=== PATIENT | female | born 1935 | race Caucasian/White ===

== ENCOUNTER → 2019-06-05 | Outpatient (CLI) | payer MEDICARE, OTHER ==
[~2019-06-05] MED LIST: ACET500 PO; AMOCLA875 PO; ARTIFICIAL TEAR15 ML BOTHEYES; ATOR20 PO; Amlodipine Besy10 MG PO; BISA10S PR; BISM87SU PO; Bactrim Ds Tab1 EACH PO; Cough Syru100 MG/5 M PO; DIVA125 PO; DOCU100 PO; ENEMA BOTTLE1 EACH PR; GAVILAX17 G1 PO; LEVO750 PO; Lipitor20 MG PO; MIRALAX17 GM PO; OMEPRAZOLE20 MG PO; ONDA4ODT PO; QUET25 PO; SENN187 PO; Triple Antibio1 EACH TOP; [UNRECOGNIZED DRUG - OTHER] TOP
[2019-06-05 14:02] LABS: Source, Urine Clean Catch
[2019-06-05 14:07] LABS: Bilirubin, Urine Neg (Neg); Blood, Urine Neg (Neg); Glucose Qualitative, Urine Neg (Neg); Ketones, Urine 1+ (Neg); Leukocyte Esterase, Urine 1+ (Neg); Nitrite, Urine Neg (Neg); Protein, Urine Neg (Neg); Specific Gravity, Urine 1.015 (1.003-1.022); Urobilinogen, Urine NORM (Normal); pH, Urine 6.5 (5.0-8.0)
[2019-06-05 14:35] LABS: Appearance, Urine Clear (Clear); Color, Urine Yellow (P-Yellow)
[2019-06-05 14:36] LABS: Bacteria Few /hpf; Squamous Epithelial Cells Mod /hpf (Few)
== END ==
LOC: LAB SHORT 13:59 → LAB 13:59
PROVIDERS: Nurse Practitioner Family
DX: N39.0 Urinary tract infection, site not specified (principal)
CPT/HCPCS: 81001; 87077; 87086; 87186

== ENCOUNTER 2019-06-17 15:42 | Inpatient (IN) | payer MEDICARE, OTHER ==
[~2019-06-17] VITALS: Ht 162.6 cm; Wt 70.9 kg
[2019-06-17] MEDS ORDERED: Lipitor20 MG PO (16:16)
[2019-06-17] MEDS ORDERED: Amlodipine Besy10 MG PO (16:16)
[2019-06-17] MEDS ORDERED: DIVA125 PO (16:17)
[2019-06-17] MEDS ORDERED: OMEPRAZOLE20 MG PO (16:17)
[2019-06-17] MEDS ORDERED: QUET25 PO (16:18)
[2019-06-17] MEDS ORDERED: ACET500 PO (16:18)
[2019-06-17] MEDS ORDERED: [UNRECOGNIZED DRUG - OTHER] TOP (16:19)
[2019-06-17] MEDS ORDERED: Cough Syru100 MG/5 M PO (16:20)
[2019-06-17] MEDS ORDERED: BISM87SU PO (16:20)
[2019-06-17] MEDS ORDERED: ARTIFICIAL TEAR15 ML BOTHEYES (16:21)
[2019-06-17] MEDS ORDERED: GAVILAX17 G1 PO (16:22)
[2019-06-17] MEDS ORDERED: ENEMA BOTTLE1 EACH PR (16:23)
[2019-06-17] MEDS ORDERED: ONDA4ODT PO (16:24)
[2019-06-17] MEDS ORDERED: Triple Antibio1 EACH TOP (16:25)
[2019-06-17 16:46] LABS: Source, Urine Catheter
[2019-06-17 16:50] LABS: Bilirubin, Urine Neg (Neg); Blood, Urine 1+ (Neg); Glucose Qualitative, Urine Neg (Neg); Ketones, Urine 2+ (Neg); Leukocyte Esterase, Urine Neg (Neg); Nitrite, Urine Neg (Neg); Protein, Urine Neg (Neg); Specific Gravity, Urine 1.025 (1.003-1.022); Urobilinogen, Urine 1+ (Normal)
[2019-06-17 16:51] LABS: BASOPHILS ABSOLUTE AUTO 0.06 K/mm3 (0.00-0.23); BASOPHILS PERCENT AUTO 1 % (0-2); EOSINOPHILS ABSOLUTE AUTO 0.28 K/mm3 (0.00-0.68); EOSINOPHILS PERCENT AUTO 3 % (0-6); Hematocrit 46.8 % (33.0-51.0); Hemoglobin 14.9 g/dL (11.5-16.0); IMMATURE GRAN ABSOLUTE AUTO 0.02 K/mm3 (0.00-0.10); IMMATURE GRAN PERCENT AUTO 0 % (0-1); LYMPHOCYTES ABSOLUTE AUTO 1.86 K/mm3 (0.84-5.20); LYMPHOCYTES PERCENT AUTO 20 % (21-46); MONOCYTES ABSOLUTE AUTO 1.46 K/mm3 (0.16-1.47); MONOCYTES PERCENT AUTO 16 % (4-13); Mean Corpuscular HGB 28.5 pg (26.0-34.0); Mean Corpuscular HGB Conc 31.8 g/dL (31.5-36.5); Mean Corpuscular Volume 90 fL (80-100); Mean Platelet Volume 10.3 fL (9.1-12.4); NEUTROPHILS PERCENT AUTO 61 % (41-73); Platelet Count 111 K/mm3 (150-400); RDW Coefficient Variation 13.6 % (11.7-14.2); RDW Standard Deviation 45.2 fL (35.1-46.3); Red Blood Cell Count 5.23 M/mm3 (3.80-5.20); White Blood Cell Count 9.38 K/mm3 (4.00-11.30)
[2019-06-17 16:58] LABS: Appearance, Urine Clear (Clear); Color, Urine Yellow (P-Yellow)
[2019-06-17 16:59] LABS: Bacteria Few /hpf; Squamous Epithelial Cells Few /hpf (Few); White Blood Cells, Urine 0-2 /hpf (0-5)
[2019-06-17 17:10] LABS: Albumin/Globulin Ratio 0.7 (0.8-1.8); Bilirubin, Total 0.7 mg/dL (0.1-1.0); Bun/Creatinine Ratio 26.9 (12.0-20.0); Calcium, Blood 10.4 mg/dL (8.5-10.1); Creatinine, Blood 0.97 mg/dL (0.40-1.00); Globulin, Blood 4.4 g/dL (2.2-4.0); Potassium, Blood 4.4 mmol/L (3.5-5.5); Total Protein, Blood 7.4 g/dL (6.4-8.2)
--- NOTE | 2019-06-17 22:45 | NUR ---
ADMIT RECEIVED FROM ER VIA GURNEY. AWAKE AND ALERT. ORIENTED TO SELF AND FOLLOWING DIRECTIONS ONLY. ANXIOUS AND DEFENSIVE, LASHED OUT AT STAFF WHEN REPOSITIONING. SLOW VERBAL RESPONSE NOTED. MOVES ALL EXTREMITIES. REPOSITIONS SELF IN BED. DENIES C/O PAIN. CNVI 0/5 AT THIS TIME. TELEMETRY SHOWS NSR WITH FIRST DEGREE AV BLOCK, RATE 70s. BP STABLE. RESPIRATIONS EVEN AND UNLABORED. RA SATS STABLE. SEE ADMIT ASSESSMENT FOR FULL ASSESSMENT.
[2019-06-18 04:10] LABS: BASOPHILS ABSOLUTE AUTO 0.05 K/mm3 (0.00-0.23); BASOPHILS PERCENT AUTO 1 % (0-2); EOSINOPHILS ABSOLUTE AUTO 0.34 K/mm3 (0.00-0.68); EOSINOPHILS PERCENT AUTO 4 % (0-6); Hematocrit 39.7 % (33.0-51.0); Hemoglobin 12.7 g/dL (11.5-16.0); IMMATURE GRAN ABSOLUTE AUTO 0.02 K/mm3 (0.00-0.10); IMMATURE GRAN PERCENT AUTO 0 % (0-1); LYMPHOCYTES ABSOLUTE AUTO 1.56 K/mm3 (0.84-5.20); LYMPHOCYTES PERCENT AUTO 20 % (21-46); MONOCYTES ABSOLUTE AUTO 1.04 K/mm3 (0.16-1.47); MONOCYTES PERCENT AUTO 13 % (4-13); Mean Corpuscular HGB 28.7 pg (26.0-34.0); Mean Corpuscular Volume 90 fL (80-100); Mean Platelet Volume 10.4 fL (9.1-12.4); NEUTROPHILS ABSOLUTE AUTO 4.78 K/mm3 (1.96-9.15); NEUTROPHILS PERCENT AUTO 61 % (41-73); Platelet Count 117 K/mm3 (150-400); RDW Coefficient Variation 13.5 % (11.7-14.2); RDW Standard Deviation 44.6 fL (35.1-46.3); Red Blood Cell Count 4.43 M/mm3 (3.80-5.20); White Blood Cell Count 7.79 K/mm3 (4.00-11.30)
[2019-06-18 04:33] LABS: Alanine Aminotransfer (ALT/SGP 110 U/L (12-78); Albumin, Blood 2.6 g/dL (3.4-5.0); Albumin/Globulin Ratio 0.7 (0.8-1.8); Alk Phos 217 U/L (50-136); Anion Gap 8 mmol/L (6-16); Aspartate Aminotrans (AST/SGOT 52 U/L (12-37); Bilirubin, Total 0.7 mg/dL (0.1-1.0); Blood Urea Nitrogen 22 mg/dL (8-24); Bun/Creatinine Ratio 28.7 (12.0-20.0); CO2, Blood 23 mmol/L (21-32); Calcium, Blood 9.2 mg/dL (8.5-10.1); Chloride, Blood 111 mmol/L (98-108); Creatinine, Blood 0.77 mg/dL (0.40-1.00); Globulin, Blood 3.7 g/dL (2.2-4.0); Glomerular Filtration Rate >60 (60-); Glucose, Blood 94 mg/dL (70-99); Potassium, Blood 4.1 mmol/L (3.5-5.5); Sodium, Blood 142 mmol/L (136-145); Total Protein, Blood 6.3 g/dL (6.4-8.2)
--- NOTE | 2019-06-18 05:30 | NUR ---
OUT OF BED PT FOUND STANDING AT BEDSIDE, ATTENDS OFF AND PEEING ON FLOOR. BACK TO BED WITH ASSIST. ENSURED THAT BED ALARM IS ON AND IS WORKING CORRECTLY.
--- NOTE | 2019-06-18 06:32 | NUR ---
SHIFT SUMMARY NO ACUTE CHANGES. CONTINUES TO BE ORIENTED TO SELF ONLY. FOLLOWS SIMPLE COMMANDS. SLOW VERBAL RESPONSE NOTED. ALSO NOTED TO HAVE SOME DIFFICULTY IN GETTING THOUGHTS OUT. IMPULSIVE AT TIMES- BED ALARM IS ON. MOVES ALL EXTREMITIES. VSS. REMAINS ON RA. RESPIRATIONS EVEN AND UNLABORED. NS INFUSING @ 150CC/HR PER ORDER. INCONTINENT OF URINE- ATTENDS IN PLACE. ABDOMINAL ULTRASOUND SCHEDULED FOR THIS AM. PT REMAINS NPO. WILL REPORT TO DAY SHIFT RN WHEN AVAILABLE.
--- NOTE | 2019-06-18 07:32 | NUR ---
NURSING PCU DAYSHIFT: Assumed care of pt at approx 0700. Alert, oriented to self only, follows some simple commands. Appears fearful at times and becomes angry w/some touch, speech is slow and mumbled. Skin is fragile w/scattered bruising on UE's, no breakdown noted. General weakness though able to assist w/repositioning. Tele in place, NSR w/first degree block, no c/o CP/pressure, SBP 90's, no noted edema. L/S cta t/o, O2 sat upper 90's on RA, no dyspnea or cough noted. Abd SNT, BT+, incontinent of urine, attends in place. PIV x1, NS infusing at 150cc/hr x1 liter. No s/s of acute distress at this time. Awaiting rounding from PMD, will discuss diet orders. No current needs identified. Bed alarm set for safety purposes. Cont to monitor for any changes.
--- NOTE | 2019-06-18 15:25 | NUR ---
NURSING PCU TRANSFER SUMMARY: Pt became more alert mid shift and interactive w/staff. Sat up for lunch and tolerated well. Unable to express needs though is able to answer basic yes/no needs based questions such as hunger and toileting. Bed alarm remains in use for safety purposes. Seen by PMD, transfer to medical floor d/o received. Rpt provided to accepting RN, PCT at bedside for w/c transport at this time. No s/s of acute distress, cont to monitor until transport is completed.
--- NOTE | 2019-06-18 16:45 | NUR ---
PT ARRIVED TO ROOM 349 FROM PCU. PT AWAKE AND ALERT TO SELF ONLY. PT DENIES ANY COMPLAINTS. LS CLEAR, ON RA. HRR. DNR WRISTBAND TO RIGHT WRIST. NS AT 75ML/HR STARTED TO 20G IV TO LAC. PT ORIENTED TO ROOM AND CALL SYSTEM, CALL LIGHT IN REACH, BED ALARM ON.
--- NOTE | 2019-06-18 21:40 | NUR ---
positive blood culture, ua currently unremarkable after completing outpt antibiotics. nkda . DR notified [facility] rx zosyn 3.75 IV Q 6 HRs for positive blood culture.
--- NOTE | 2019-06-19 05:23 | NUR ---
PT is irritable and resists cares and vital signs. Verbally abusive threatens to hit staff but does not attempt to strike us. She was incontinent of urine and I explained what we needed to do and she verbally resists. She then hollered she needed to use bathroom right after changed. Up to c voided small amt. She had taken no oral intake but accepted coffee and ensure this AM. Continues on normal saline and zosyn. One positive blood culture after tx for uti. Has lab work scheduled for this am. as she is drinking ensure I asked if the lab can approach her last so she can drink. Poor memory, hx dementia. Unsteady gait.
[2019-06-19 05:50] LABS: Mean Platelet Volume 9.8 fL (9.1-12.4); Platelet Count 135 K/mm3 (150-400)
[2019-06-19 06:08] LABS: Alanine Aminotransfer (ALT/SGP 88 U/L (12-78); Albumin, Blood 2.5 g/dL (3.4-5.0); Albumin/Globulin Ratio 0.7 (0.8-1.8); Alk Phos 206 U/L (50-136); Anion Gap 8 mmol/L (6-16); Aspartate Aminotrans (AST/SGOT 47 U/L (12-37); Bilirubin, Total 0.5 mg/dL (0.1-1.0); Blood Urea Nitrogen 22 mg/dL (8-24); Bun/Creatinine Ratio 29.5 (12.0-20.0); CO2, Blood 22 mmol/L (21-32); Calcium, Blood 9.5 mg/dL (8.5-10.1); Chloride, Blood 115 mmol/L (98-108); Creatinine, Blood 0.75 mg/dL (0.40-1.00); Globulin, Blood 3.6 g/dL (2.2-4.0); Glomerular Filtration Rate >60 (60-); Glucose, Blood 100 mg/dL (70-99); Potassium, Blood 4.3 mmol/L (3.5-5.5); Sodium, Blood 145 mmol/L (136-145); Total Protein, Blood 6.1 g/dL (6.4-8.2)
--- NOTE | 2019-06-19 15:18 | NUR ---
LIN BECKER FROM [facility] GIVEN VERBAL UPDATE ON PT.
--- NOTE | 2019-06-19 17:09 | NUR ---
SHIFT SUMMARY- PT A/O TO PERSON AND HOSPITAL. PT HAS BEEN PLEASANT T/O MOST OF THE DAY, DIFFICULT TO FOLLOW DIRECTIONS AT TIMES. LS CLEAR, ON RA. INCONT/CONT OF URINE. PT DENIES ANY COMPLAINTS. PT STARTED BACK ON BEDTIME SEROQUEL WHICH WAS CONFIRMED WITH NURSE AT [facility] THAT SHE TAKES IT. 1 ASSIST UP TO BSC AND UP TO CHAIR FOR MEALS T/O THE DAY. NO OTHER ACUTE CHANGES THIS SHIFT.
--- NOTE | 2019-06-20 04:26 | NUR ---
SHIFT SUMMARY NO ACUTE CHANGES TO REPORT OVERNIGHT. PT RESPONDED WELL TO HS SEROQUEL AND HAS SLEPT MOST OF THE NIGHT WITH NO AGITATION. SHE HAS AMBULATED TO BEDSIDE COMMODE A FEW TIMES THIS SHIFT TO VOID. URINE IS FOUL SMELLING, AND PT DOES HAVE SOME FREQUENCY. PT FORGETFUL AND YELLS OUT BUT HAS BEEN EASY TO REDIRECT. IV ABX INFUSED PER ORDERS. VITALS STABLE. POSSIBLE DC TODAY DEPENDENT ON BLOOD CX RESULTS. WILL CONTINUE TO MONITOR AND REPORT TO ONCOMING RN.
--- NOTE | 2019-06-20 12:26 | NUR ---
F/U APPT.: SPOKE WITH [facility] RECEPTIONIST TO SCHEDULE F/U APPT. WITH [facility]. ACCORDING TO THE SOCIAL SCIENCE INSTRUCTOR, THE PT HAS A NEW PT APPT. SET FOR . THIS RN ASKED TO MOVE THE APPT. TO A SOONER DATE (WITHIN 2 WEEKS) BUT THE OFFICE STATED THAT [facility] IS VERY PARTICULAR ABOUT THEIR APPTS. AND WILL NEED TO RESCHEDULE IT THEMSELVES. NOTIFIED BEDSIDE LIN PARKS WHO STATED SHE WILL INFORM [facility] LIN BECKER.
[2019-06-20] MEDS ORDERED: AMOCLA875 PO (12:49)
--- NOTE | 2019-06-20 17:14 | NUR ---
DISCHARGE NOTE PT DC'D HER OWN IV. HANDOFF CALLED TO NURSE EUGENIO AT [facility] PERSONAL POSSSESSIONS GATHERED. PERSONNEL RESEARCH SCIENTIST CAME TO TRANSPORT PT TO [facility]). DISCHARGE PACKET FAXED TO [facility]) AND A HARDCOPY GIVEN TO PERSONNEL RESEARCH SCIENTIST.
== END 2019-06-20 17:11 | disposition home health service (06) | DRG 640 ==
LOC: ER 15:42 → PCU 15:43 → MEDS 06-18 15:09
PROVIDERS: Emergency Medicine; Internal Medicine; Nurse Practitioner Acute Care; ADMIT Hospitalist
DX: E86.0 Dehydration (principal); G93.41 Metabolic encephalopathy; N39.0 Urinary tract infection, site not specified; K21.9 Gastro-esophageal reflux disease without esophagitis; F39 Unspecified mood [affective] disorder; Z90.49 Acquired absence of other specified parts of digestive tract; D69.6 Thrombocytopenia, unspecified; I10 Essential (primary) hypertension
CPT/HCPCS: 36415; 71046; 76705; 80053; 81001; 82947; 84145; 84484; 85025; 85049; 86140; 87040; 93005; 93010; 96360; 96361; 97161; 97165; 97530; 99285-25; G0378; J1650; J2543; J7030

== ENCOUNTER → 2019-07-04 | Outpatient (CLI) | payer MEDICARE, OTHER ==
[2019-07-07 11:42] LABS: Source, Urine Clean Catch
[2019-07-07 12:01] LABS: Bilirubin, Urine Neg (Neg); Blood, Urine 2+ (Neg); Glucose Qualitative, Urine Neg (Neg); Ketones, Urine 1+ (Neg); Leukocyte Esterase, Urine 3+ (Neg); Nitrite, Urine Pos (Neg); Protein, Urine 2+ (Neg); Urobilinogen, Urine NORM (Normal)
[2019-07-07 12:20] LABS: Appearance, Urine Hazy (Clear); Color, Urine Yellow (P-Yellow)
[2019-07-07 12:21] LABS: Bacteria Many /hpf; Calcium Oxalate Crystals Many /hpf; Squamous Epithelial Cells Few /hpf (Few)
== END ==
LOC: LAB SHORT 18:00 → LAB 18:00
PROVIDERS: Registered Nurse
DX: N39.0 Urinary tract infection, site not specified (principal)
CPT/HCPCS: 81001; 87077; 87086; 87186

== ENCOUNTER 2019-07-11 13:03 | Inpatient (IN) | payer MEDICARE, OTHER ==
[~2019-07-11] VITALS: Ht 157.5 cm; Wt 69.8 kg
[~2019-07-11 13:03] MED LIST changes: -ATOR20 PO; -BISA10S PR; -Bactrim Ds Tab1 EACH PO; -DOCU100 PO; -LEVO750 PO; -MIRALAX17 GM PO; -SENN187 PO
[2019-07-11 13:41] LABS: Source, Urine Clean Catch
[2019-07-11 13:55] LABS: BASOPHILS ABSOLUTE AUTO 0.04 K/mm3 (0.00-0.23); BASOPHILS PERCENT AUTO 0 % (0-2); EOSINOPHILS ABSOLUTE AUTO 0.05 K/mm3 (0.00-0.68); EOSINOPHILS PERCENT AUTO 1 % (0-6); Hematocrit 41.2 % (33.0-51.0); Hemoglobin 13.1 g/dL (11.5-16.0); IMMATURE GRAN ABSOLUTE AUTO 0.02 K/mm3 (0.00-0.10); IMMATURE GRAN PERCENT AUTO 0 % (0-1); LYMPHOCYTES ABSOLUTE AUTO 0.27 K/mm3 (0.84-5.20); LYMPHOCYTES PERCENT AUTO 3 % (21-46); MONOCYTES PERCENT AUTO 8 % (4-13); Mean Corpuscular HGB Conc 31.8 g/dL (31.5-36.5); Mean Corpuscular Volume 88 fL (80-100); Mean Platelet Volume 10.3 fL (9.1-12.4); NEUTROPHILS ABSOLUTE AUTO 7.95 K/mm3 (1.96-9.15); NEUTROPHILS PERCENT AUTO 88 % (41-73); Platelet Count 130 K/mm3 (150-400); RDW Coefficient Variation 13.9 % (11.7-14.2); RDW Standard Deviation 44.3 fL (35.1-46.3); Red Blood Cell Count 4.68 M/mm3 (3.80-5.20); White Blood Cell Count 9.03 K/mm3 (4.00-11.30)
[2019-07-11 14:03] LABS: Albumin, Blood 3.1 g/dL (3.4-5.0); Albumin/Globulin Ratio 0.9 (0.8-1.8); Bilirubin, Total 1.4 mg/dL (0.1-1.0); Bun/Creatinine Ratio 17.5 (12.0-20.0); Calcium, Blood 9.5 mg/dL (8.5-10.1); Creatinine, Blood 0.97 mg/dL (0.40-1.00); Globulin, Blood 3.5 g/dL (2.2-4.0); Total Protein, Blood 6.6 g/dL (6.4-8.2)
[2019-07-11 14:17] LABS: Bilirubin, Urine Neg (Neg); Blood, Urine Neg (Neg); Glucose Qualitative, Urine Neg (Neg); Ketones, Urine Neg (Neg); Leukocyte Esterase, Urine Neg (Neg); Nitrite, Urine Neg (Neg); Protein, Urine Neg (Neg); Specific Gravity, Urine 1.015 (1.003-1.022); Urobilinogen, Urine 1+ (Normal)
[2019-07-11 14:23] LABS: Appearance, Urine Clear (Clear); Color, Urine Yellow (P-Yellow)
[2019-07-11] MEDS ORDERED: ATOR20 PO (14:28)
[2019-07-11] MEDS ORDERED: OMEPRAZOLE20 MG PO (14:28)
[2019-07-11] MEDS ORDERED: Bactrim Ds Tab1 EACH PO (14:28)
[2019-07-11] MEDS ORDERED: ONDA4ODT PO (14:29)
[2019-07-11] MEDS ORDERED: ACET500 PO (17:09)
[2019-07-11] MEDS ORDERED: BISM87SU PO (17:09)
[2019-07-11] MEDS ORDERED: MIRALAX17 GM PO (17:10)
[2019-07-11 17:27] LABS: International Normalized Ratio 1.07; Prothrombin Time Results 11.3 Sec (9.7-11.5)
--- NOTE | 2019-07-11 18:33 | NUR ---
Pt arrival to PCU 1 at approx 1750 via [facility] with ED RN at bedside. Upon arrival, pt with flat affect, shaking uncontrollably, warm to the touch. This RN attempting to converse with pt, asking orientation questions but pt reponds only with "no." Pt transferred from [facility] to PCU bed via slider sheet, pt yelling with transfer. this RN asked pt if she is in pain, pt did not answer, only looks at this RN. Pt with limited passive ROM ability. Unable to assess orientation d/t pt not answering questions. When this RN asked pt for name and for vitals verification, pt responds "get the hell out". Pt with VSS as follows: 126/72 MAP of 90, 98% o2 on 2LNC, breathing 21 bpm, mildly labored, shallow, wheeze audible; pulse 78 per monitor; temp 99 via temporal. as assessment continues, pt responding to questions here and there. When asked if stomach is tender to palp; pt responds "yes". When asked if this Rn can place a new IV in left arm, pt responds "do not poke me. do not poke me." Istrate called to clarify fluid orders, order clarified and NS to be given at 75mls/hr. Will continue to monitor.
--- NOTE | 2019-07-11 21:42 | NUR ---
PATIENT ADMISSION HX UNABLE TO BE COMPLETED DUE TO AMS, MEDICAL HX PROVIDED BY [facility] USED FOR MEDICATION RECONCILIATION AND ALLERGIES.
[2019-07-12 04:05] LABS: BASOPHILS ABSOLUTE AUTO 0.05 K/mm3 (0.00-0.23); BASOPHILS PERCENT AUTO 1 % (0-2); EOSINOPHILS ABSOLUTE AUTO 0.12 K/mm3 (0.00-0.68); EOSINOPHILS PERCENT AUTO 2 % (0-6); Hematocrit 33.7 % (33.0-51.0); Hemoglobin 10.7 g/dL (11.5-16.0); IMMATURE GRAN ABSOLUTE AUTO 0.02 K/mm3 (0.00-0.10); IMMATURE GRAN PERCENT AUTO 0 % (0-1); LYMPHOCYTES PERCENT AUTO 8 % (21-46); MONOCYTES ABSOLUTE AUTO 0.76 K/mm3 (0.16-1.47); MONOCYTES PERCENT AUTO 10 % (4-13); Mean Corpuscular HGB 28.4 pg (26.0-34.0); Mean Corpuscular HGB Conc 31.8 g/dL (31.5-36.5); Mean Corpuscular Volume 89 fL (80-100); Mean Platelet Volume 10.6 fL (9.1-12.4); NEUTROPHILS ABSOLUTE AUTO 6.04 K/mm3 (1.96-9.15); NEUTROPHILS PERCENT AUTO 80 % (41-73); Platelet Count 109 K/mm3 (150-400); RDW Coefficient Variation 14.2 % (11.7-14.2); RDW Standard Deviation 45.8 fL (35.1-46.3); Red Blood Cell Count 3.77 M/mm3 (3.80-5.20); White Blood Cell Count 7.59 K/mm3 (4.00-11.30)
[2019-07-12 04:21] LABS: Albumin, Blood 2.3 g/dL (3.4-5.0); Albumin/Globulin Ratio 0.7 (0.8-1.8); Bilirubin, Total 1.6 mg/dL (0.1-1.0); Bun/Creatinine Ratio 16.5 (12.0-20.0); Calcium, Blood 8.9 mg/dL (8.5-10.1); Creatinine, Blood 1.03 mg/dL (0.40-1.00); Globulin, Blood 3.1 g/dL (2.2-4.0); Magnesium, Blood 1.6 mg/dL (1.6-2.4); Phosphorus, Blood 2.8 mg/dL (2.5-4.9); Potassium, Blood 4.1 mmol/L (3.5-5.5); Total Protein, Blood 5.4 g/dL (6.4-8.2)
--- NOTE | 2019-07-12 04:34 | NUR ---
SHIFT SUMMARY: PATIENT HAS VERY BRIEF PERIODS OF MENTAL ALLERTNESS BUT IS AGGITATED AND ANGRY WITH STAFF AT THESE TIMES. VSS, BED LOW AND LOCKED WITH EXIT ALARM ON, CALL LIGHT WITHIN REACH. SKIN C/D/I, ATTENDS IN PLACE, PATIENT TURNED Q2.
--- NOTE | 2019-07-12 07:16 | NUR ---
ASSUMED CARE REPORT FROM LIN REYES. PATIENT AWAKE. WHEN REMINDED SHE WAS IN THE HOSPITAL, SHE SAID "I KNOW"
--- NOTE | 2019-07-12 09:41 | NUR ---
MD VISIT DR. BUENO IN. PLANS FOR DISCHARGE. PATIENT SAYS "I KNOW" WHEN REORIENTED, BUT SAYS SHE LIVES IN [place] AND IS UNCOOPERTIVE WITH CARE.
[2019-07-12] MEDS ORDERED: LEVO750 PO (10:05)
--- NOTE | 2019-07-12 11:59 | NUR ---
ORDER FOR DISCHARGE, BUT [facility] IS NOT ACCEPTING PATIENT ON THE WEEKEND.
--- NOTE | 2019-07-12 12:10 | NUR ---
DAUGHTER TATE ([phone]) UPDATED. SHE DOES NOT LIVE HERE LOCALLY
--- NOTE | 2019-07-12 12:38 | NUR ---
PATIENT WILL TRANSFER TO ROOM 348 TO AWAIT DISCHARGE.
--- NOTE | 2019-07-12 14:27 | NUR ---
REPORT GIVEN TO LIN NEWMAN. PATIENT MOVED IN BED BY SHOT BLASTER X2 TO 348
--- NOTE | 2019-07-12 18:45 | NUR ---
TRANSFER/SHIFT SUMMARY PATIENT MOVED TO SCU. PATIENT CONFUSED AND WARY OF STAFF. PATIENT STATED SHE HAD TO USE THE BATHROOM AND COMMODE WAS SET UP AND HEAD OF BED SET UP, PATIENT WAS NOT ABLE TO SIT HERSELF UP/SWING LEGS OVER. PATIENT ALLOWED STAFF TO CHANGE HER BRIEF IN BED. PATIENT DOES NOT PICK AT POWERGLIDE. PATIENT STATED THE FOOD TASTED BAD.
--- NOTE | 2019-07-13 04:29 | NUR ---
SHIFT SUMMARY: PT IS ALERT AND CONFUSED AT BASELINE. PT IS NON-COOPERATIVE WITH CARE AT TIMES. PT TOO WEAK TO GET OUT OF BED, BEDREST ORDERED. PT INCONTINENT ON SEVERAL OCCASIONS, CHANGED AND CLEANED NEEDED. PT SLEPT INTERMITTENTLY THROUGHOUT THE NIGHT. PT SHOWS NO S/S FOR PAIN, NAUSEA, VOMITING, AND SOB. NO ACUTE CHANGES OR COMPLICATIONS. WILL REPORT TO DAY NURSE.
--- NOTE | 2019-07-13 17:45 | NUR ---
SHIFT SUMMMARY PATIENT DENIES PAIN, SOB, NAUSEA. STATES "I'M FINE" TO ALL OTHER QUESTIONS ABOUT HER. WAS ABLE TO CHOOSE BETWEEN FOOD OPTIONS TO FILL OUT MENU. HAS NOT EATEN MANY MEALS HERE BUT ATE ALL OF LUNCH. PATIENT IS CONTINENT MOST OF THE TIME AND HAS PIVOTED TO THE COMMODE TODAY SEVERAL TIMES. OTHERWISE NO CHANGE TO PATIENT CONDITION, SHE REFUSED AM MEDS. WILL CONTINUE TO MONITOR.
--- NOTE | 2019-07-14 02:07 | NUR ---
*PT PULLED OUT POWERGLIDE @ 0030 HRS*
--- NOTE | 2019-07-14 04:22 | NUR ---
SHIFT SUMMARY PT WAS PLEASENT AND COOPERATIVE AT BEGINNING OF SHIFT. PT WAS ABLE TO SLEEP FOR SOME TIME. PT WOKE UP AGITATED AND UNCOOPERATIVE. PT HAS BEEN USING BSC WITH ASSISTANCE. PT CURRENTLY AWAKE AND LAYING IN BED. CALL LIGHT IN REACH AND BED ALARM ON.
[2019-07-14] MEDS ORDERED: SENN187 PO (14:43)
[2019-07-14] MEDS ORDERED: BISA10S PR (14:44)
[2019-07-14] MEDS ORDERED: DOCU100 PO (14:45)
--- NOTE | 2019-07-14 15:57 | NUR ---
PT. HILARIO AND TRANSFERRED TO [facility] VIA [facility]. BELONGINGS SENT WITH PT. AND ORDERS AND MEDS FAXED TO [facility] BY MANAGER MASSAGE DEPARTMENT. REPORT GIVEN THIS MORNING TO [facility] WHEN THEY CALLED.
== END 2019-07-14 15:50 | DRG 871 ==
LOC: ER 13:03 → PCU 17:13 → MEDS 17:43 → PCU 17:50 → MEDS 07-12 14:34 → ENPENDDIS 07-14 12:40 → MEDS 07-14 15:50
PROVIDERS: Emergency Medicine; ADMIT Family Medicine
DX: A41.9 Sepsis, unspecified organism (principal); J18.1 Lobar pneumonia, unspecified organism; G92 Toxic encephalopathy; Z66 Do not resuscitate; N39.0 Urinary tract infection, site not specified; I10 Essential (primary) hypertension; K21.9 Gastro-esophageal reflux disease without esophagitis; F25.9 Schizoaffective disorder, unspecified; E78.5 Hyperlipidemia, unspecified; F03.90 Unspecified dementia, unspecified severity, without behavioral disturbance, psychotic disturbance, mood disturbance, and anxiety; D69.6 Thrombocytopenia, unspecified; E86.0 Dehydration; N28.9 Disorder of kidney and ureter, unspecified
CPT/HCPCS: 36415; 71045; 74176; 80053; 81003; 83605; 83690; 83735; 84100; 85025; 85610; 85730; 87040; 93005; 93010; 96360; 96361; 97161; 97530; 99285-25; C1751; C9113; J0692; J1650; J1956; J3370; J7030; J7120; P9612

== ENCOUNTER → 2019-07-31 | Outpatient (CLI) | payer MEDICARE, OTHER ==
[~2019-07-31] MED LIST changes: +ATOR20 PO; +BISA10S PR; +Bactrim Ds Tab1 EACH PO; +DOCU100 PO; +LEVO750 PO; +MIRALAX17 GM PO; +SENN187 PO
[2019-07-31 11:03] LABS: Source, Urine Clean Catch
[2019-07-31 12:28] LABS: Bilirubin, Urine Neg (Neg); Blood, Urine Neg (Neg); Glucose Qualitative, Urine Neg (Neg); Ketones, Urine Neg (Neg); Leukocyte Esterase, Urine Neg (Neg); Nitrite, Urine Neg (Neg); Protein, Urine Neg (Neg); Specific Gravity, Urine 1.025 (1.003-1.022); Urobilinogen, Urine NORM (Normal)
[2019-07-31 12:36] LABS: Appearance, Urine Clear (Clear); Color, Urine Yellow (P-Yellow)
== END | disposition home or self-care (01) ==
LOC: LAB SHORT 01:06 → LAB 01:06
PROVIDERS: Registered Nurse
DX: N39.0 Urinary tract infection, site not specified (principal)
CPT/HCPCS: 81003

== ENCOUNTER → 2019-09-11 | Outpatient (CLI) | payer MEDICARE, OTHER ==
[2019-09-11 16:37] LABS: Bilirubin, Urine Neg (Neg); Blood, Urine Neg (Neg); Glucose Qualitative, Urine Neg (Neg); Ketones, Urine Neg (Neg); Leukocyte Esterase, Urine Neg (Neg); Nitrite, Urine Neg (Neg); Protein, Urine Neg (Neg); Urobilinogen, Urine NORM (Normal)
[2019-09-11 16:57] LABS: Appearance, Urine Clear (Clear); Color, Urine Yellow (P-Yellow)
== END | disposition home or self-care (01) ==
LOC: LAB 13:59 → LAB SHORT 13:59
PROVIDERS: Registered Nurse
DX: N39.0 Urinary tract infection, site not specified (principal)
CPT/HCPCS: 81003

== ENCOUNTER → 2019-11-28 | Outpatient (CLI) | payer MEDICARE, OTHER ==
[2019-11-28 18:25] LABS: Source, Urine Clean Catch
[2019-11-28 19:42] LABS: Appearance, Urine Clear (Clear); Bilirubin, Urine Neg (Neg); Blood, Urine Neg (Neg); Color, Urine Yellow (P-Yellow); Glucose Qualitative, Urine Neg (Neg); Ketones, Urine Neg (Neg); Leukocyte Esterase, Urine Neg (Neg); Nitrite, Urine Neg (Neg); Protein, Urine Neg (Neg); Urobilinogen, Urine NORM (Normal)
== END | disposition home or self-care (01) ==
LOC: LAB 18:22 → LAB SHORT 18:22
PROVIDERS: Registered Nurse
DX: N39.0 Urinary tract infection, site not specified (principal)
CPT/HCPCS: 81003

== ENCOUNTER → 2020-04-27 | Outpatient (CLI) | payer MEDICARE, OTHER ==
[~2020-04-27] MED LIST changes: +AMLO10 PO; +Aspir 8181 MG PO; +CEFD300 PO; +FURO20 PO; +Haloperidol2 MG/1 ML PO; +Milk Of Ma400 MG/5 M PO; +Norco 5-325 Ta1 EACH PO; +OMEP20ER PO; +OXYB5 PO; +POTA10T PO
[2020-04-27 18:49] LABS: Source, Urine Clean Catch
[2020-04-27 19:47] LABS: Bilirubin, Urine Neg (Neg); Blood, Urine 1+ (Neg); Glucose Qualitative, Urine Neg (Neg); Ketones, Urine Neg (Neg); Leukocyte Esterase, Urine Neg (Neg); Nitrite, Urine Neg (Neg); Protein, Urine Neg (Neg); Specific Gravity, Urine 1.015 (1.003-1.022); Urobilinogen, Urine NORM (Normal)
[2020-04-27 19:57] LABS: Appearance, Urine Clear (Clear); Bacteria Many /hpf; Color, Urine Yellow (P-Yellow); Red Blood Cells, Urine 0-2 /hpf (0-2); Squamous Epithelial Cells Few /hpf (Few); White Blood Cells, Urine 0-2 /hpf (0-5)
== END | disposition home or self-care (01) ==
LOC: LAB 18:47 → LAB SHORT 18:47
PROVIDERS: Registered Nurse
DX: N39.0 Urinary tract infection, site not specified (principal)
CPT/HCPCS: 81001; 87077; 87086; 87186

== ENCOUNTER 2020-05-26 16:54 | Emergency (ER) | payer MEDICARE, OTHER ==
[~2020-05-26] VITALS: Ht 162.6 cm; Wt 72.6 kg
[~2020-05-26 16:54] MED LIST changes: -AMLO10 PO; -Aspir 8181 MG PO; -CEFD300 PO; -FURO20 PO; -Haloperidol2 MG/1 ML PO; -Milk Of Ma400 MG/5 M PO; -Norco 5-325 Ta1 EACH PO; -OMEP20ER PO; -OXYB5 PO; -POTA10T PO
[2020-05-26] MEDS ORDERED: Aspir 8181 MG PO (17:15)
[2020-05-26] MEDS ORDERED: AMLO10 PO (17:15)
[2020-05-26] MEDS ORDERED: FURO20 PO (17:16)
[2020-05-26] MEDS ORDERED: CEFD300 PO (17:16)
[2020-05-26] MEDS ORDERED: Norco 5-325 Ta1 EACH PO (17:18)
[2020-05-26] MEDS ORDERED: Haloperidol2 MG/1 ML PO (17:18)
[2020-05-26] MEDS ORDERED: OMEP20ER PO (17:19)
[2020-05-26] MEDS ORDERED: POTA10T PO (17:20)
[2020-05-26] MEDS ORDERED: OXYB5 PO (17:20)
[2020-05-26] MEDS ORDERED: Milk Of Ma400 MG/5 M PO (17:23)
[2020-05-26 17:27] LABS: BASOPHILS ABSOLUTE AUTO 0.07 K/mm3 (0.00-0.23); BASOPHILS PERCENT AUTO 1 % (0-2); EOSINOPHILS ABSOLUTE AUTO 0.15 K/mm3 (0.00-0.68); EOSINOPHILS PERCENT AUTO 2 % (0-6); Hematocrit 39.7 % (33.0-51.0); Hemoglobin 12.9 g/dL (11.5-16.0); IMMATURE GRAN ABSOLUTE AUTO 0.02 K/mm3 (0.00-0.10); IMMATURE GRAN PERCENT AUTO 0 % (0-1); LYMPHOCYTES ABSOLUTE AUTO 1.75 K/mm3 (0.84-5.20); LYMPHOCYTES PERCENT AUTO 22 % (21-46); MONOCYTES ABSOLUTE AUTO 0.57 K/mm3 (0.16-1.47); MONOCYTES PERCENT AUTO 7 % (4-13); Mean Corpuscular HGB 28.9 pg (26.0-34.0); Mean Corpuscular HGB Conc 32.5 g/dL (31.5-36.5); Mean Corpuscular Volume 89 fL (80-100); Mean Platelet Volume 10.2 fL (9.1-12.4); NEUTROPHILS ABSOLUTE AUTO 5.58 K/mm3 (1.96-9.15); NEUTROPHILS PERCENT AUTO 69 % (41-73); Platelet Count 209 K/mm3 (150-400); RDW Coefficient Variation 12.9 % (11.7-14.2); RDW Standard Deviation 42.3 fL (35.1-46.3); Red Blood Cell Count 4.46 M/mm3 (3.80-5.20); White Blood Cell Count 8.14 K/mm3 (4.00-11.30)
[2020-05-26 17:42] LABS: Alanine Aminotransfer (ALT/SGP 19 U/L (12-78); Albumin, Blood 3.4 g/dL (3.4-5.0); Alk Phos 124 U/L (50-136); Anion Gap 7 mmol/L (6-16); Aspartate Aminotrans (AST/SGOT 14 U/L (12-37); Bilirubin, Total 0.4 mg/dL (0.1-1.0); Blood Urea Nitrogen 21 mg/dL (8-24); Bun/Creatinine Ratio 27.4 (12.0-20.0); CO2, Blood 22 mmol/L (21-32); Calcium, Blood 9.8 mg/dL (8.5-10.1); Chloride, Blood 113 mmol/L (98-108); Creatinine, Blood 0.77 mg/dL (0.40-1.00); Globulin, Blood 3.3 g/dL (2.2-4.0); Glomerular Filtration Rate >60 (60-); Glucose, Blood 115 mg/dL (70-99); Sodium, Blood 142 mmol/L (136-145); Total Protein, Blood 6.7 g/dL (6.4-8.2); Troponin I <0.015 ng/mL (0.000-0.040)
== END 2020-05-26 18:44 | disposition home or self-care (01) ==
LOC: ER 16:54
PROVIDERS: Physician Assistant
DX: N39.0 Urinary tract infection, site not specified (principal); R60.0 Localized edema; Z79.899 Other long term (current) drug therapy; I10 Essential (primary) hypertension; K21.9 Gastro-esophageal reflux disease without esophagitis; E78.5 Hyperlipidemia, unspecified; F31.9 Bipolar disorder, unspecified
CPT/HCPCS: 80053; 83880; 84484; 85025; 93005; 93010; 93971; 96365; 99285-25; J0696

== ENCOUNTER 2020-09-19 09:06 | Inpatient (IN) | payer MEDICARE, OTHER ==
[~2020-09-19] VITALS: Ht 162.6 cm; Wt 66.9 kg
[~2020-09-19 09:06] MED LIST changes: +ACET325 PO; +AMLO10 PO; +Aspir 8181 MG PO; +BISMATROL262 MG/15 PO; +CEFD300 PO; +FURO20 PO; +Haloperidol2 MG/1 ML PO; +Milk Of Ma400 MG/5 M PO; +Norco 5-325 Ta1 EACH PO; +OMEP20ER PO; +OXYB5 PO; +POTA10T PO
[2020-09-19] MEDS ORDERED: Neurontin 100100 MG PO (09:40)
[2020-09-19] MEDS ORDERED: IBUP200 PO (09:42)
[2020-09-19] MEDS ORDERED: IBUP400 PO ×2 (09:43→11:48)
[2020-09-19] MEDS ORDERED: NYSTOP15 GM TOP (09:44)
[2020-09-19 10:36] LABS: BASOPHILS ABSOLUTE AUTO 0.06 K/mm3 (0.00-0.23); BASOPHILS PERCENT AUTO 0 % (0-2); EOSINOPHILS ABSOLUTE AUTO 0.04 K/mm3 (0.00-0.68); EOSINOPHILS PERCENT AUTO 0 % (0-6); Hemoglobin 12.7 g/dL (11.5-16.0); IMMATURE GRAN ABSOLUTE AUTO 0.07 K/mm3 (0.00-0.10); IMMATURE GRAN PERCENT AUTO 1 % (0-1); LYMPHOCYTES ABSOLUTE AUTO 0.76 K/mm3 (0.84-5.20); LYMPHOCYTES PERCENT AUTO 6 % (21-46); MONOCYTES ABSOLUTE AUTO 0.87 K/mm3 (0.16-1.47); MONOCYTES PERCENT AUTO 6 % (4-13); Mean Corpuscular HGB 28.5 pg (26.0-34.0); Mean Corpuscular HGB Conc 32.6 g/dL (31.5-36.5); Mean Corpuscular Volume 88 fL (80-100); Mean Platelet Volume 9.8 fL (9.1-12.4); NEUTROPHILS ABSOLUTE AUTO 12.14 K/mm3 (1.96-9.15); NEUTROPHILS PERCENT AUTO 87 % (41-73); Platelet Count 179 K/mm3 (150-400); RDW Coefficient Variation 13.1 % (11.7-14.2); RDW Standard Deviation 41.7 fL (35.1-46.3); Red Blood Cell Count 4.45 M/mm3 (3.80-5.20); White Blood Cell Count 13.94 K/mm3 (4.00-11.30)
[2020-09-19 10:48] LABS: International Normalized Ratio 1.02; Prothrombin Time Results 10.9 Sec (9.7-11.5)
[2020-09-19 10:52] LABS: Alanine Aminotransfer (ALT/SGP 17 U/L (12-78); Albumin, Blood 3.6 g/dL (3.4-5.0); Albumin/Globulin Ratio 1.1 (0.8-1.8); Alk Phos 139 U/L (50-136); Anion Gap 6 mmol/L (6-16); Aspartate Aminotrans (AST/SGOT 12 U/L (12-37); Bilirubin, Total 0.5 mg/dL (0.1-1.0); Blood Urea Nitrogen 16 mg/dL (8-24); Bun/Creatinine Ratio 26.7 (12.0-20.0); CO2, Blood 25 mmol/L (21-32); Calcium, Blood 9.5 mg/dL (8.5-10.1); Chloride, Blood 114 mmol/L (98-108); Globulin, Blood 3.2 g/dL (2.2-4.0); Glomerular Filtration Rate >60 (60-); Glucose, Blood 147 mg/dL (70-99); Potassium, Blood 3.8 mmol/L (3.5-5.5); Sodium, Blood 145 mmol/L (136-145); Total Protein, Blood 6.8 g/dL (6.4-8.2)
[2020-09-19] MEDS ORDERED: HALOPERIDOL2 MG/1 ML PO (11:45)
[2020-09-19] MEDS ORDERED: OXYB5 PO (11:45)
[2020-09-19] MEDS ORDERED: SULI150 PO (11:46)
[2020-09-19 13:02] LABS: Influenza A, PCR Negative (NEGATIVE); Influenza B, PCR Negative (NEGATIVE); Resp Syncytial Virus, PCR Negative (NEGATIVE); SARS-Cov-2 (COVID-19) PCR, MMC Negative (NEGATIVE)
--- NOTE | 2020-09-19 15:09 | NUR ---
PT RESTING QUIETLY. CONT BIOX PLACED BY RT. ALARM IN PLACE.
--- NOTE | 2020-09-19 18:23 | NUR ---
SHIFT SUMMARY PT NEW ADMIT TODAY. PT WITH HX OF DEMENTIA. PT CONFUSED. BED ALARM IN PLACE. PT BEEN ASSISTED WITH ADL'S PRN. PT HAS PAS TO BLE IN PLACE. CONT BIOX IN PLACE. PT ATTENDS BEEN CHANGED WITH ASSIST FROM FEMALE LICENSED INSURANCE SALES AGENT.
--- NOTE | 2020-09-20 13:06 | NUR ---
PT TO OR.
--- NOTE | 2020-09-20 13:30 | NUR ---
PATIENT INTO SDS VIA BED. AWNSERING INCONTISTENTLY QUESTIONS. AT TIMES WILL HAVE NO RESPONSE. TELEPHONE CONSENT DONE WITH GRANDDAUGHTER FOR BLOOD AND ANETHESIA.
--- NOTE | 2020-09-20 19:27 | NUR ---
SUMMARY PT POD 0 R HIP FX REPAIR. PT HAS BEEN RESTING QUIETLY SINCE ARRIVING BACK TO UNIT FROM PACU. VSS. DRESSING TO HIP CDI. BED ALARM ON. CALL LIGHT IN REACH.
--- NOTE | 2020-09-21 04:20 | NUR ---
CALL PLACED TO HOSPITALIST AT THIS TIME D/T DECLINE IN RESPIRATORY STATUS. DR INFORMED OF RESPIRATORY RATE OF 33, O2 SATURATION OF 94% ON 3LO2 AND COARSE LUNG SOUNDS THROUGHOUT. NEW ORDER FOR STAT CHEST XRAY AND FOR INITIATION OF RT ASSESSMENT.
--- NOTE | 2020-09-21 04:47 | NUR ---
RT RECOMMENDING ABG. NEW ORDER AT THIS TIME PER HOSPITALIST.
[2020-09-21 04:50] LABS: BASOPHILS ABSOLUTE AUTO 0.04 K/mm3 (0.00-0.23); BASOPHILS PERCENT AUTO 0 % (0-2); EOSINOPHILS ABSOLUTE AUTO 0.04 K/mm3 (0.00-0.68); EOSINOPHILS PERCENT AUTO 0 % (0-6); Hematocrit 31.5 % (33.0-51.0); IMMATURE GRAN ABSOLUTE AUTO 0.03 K/mm3 (0.00-0.10); IMMATURE GRAN PERCENT AUTO 0 % (0-1); LYMPHOCYTES ABSOLUTE AUTO 0.92 K/mm3 (0.84-5.20); LYMPHOCYTES PERCENT AUTO 8 % (21-46); MONOCYTES ABSOLUTE AUTO 0.96 K/mm3 (0.16-1.47); MONOCYTES PERCENT AUTO 9 % (4-13); Mean Corpuscular HGB 28.1 pg (26.0-34.0); Mean Corpuscular HGB Conc 31.7 g/dL (31.5-36.5); Mean Corpuscular Volume 89 fL (80-100); Mean Platelet Volume 10.5 fL (9.1-12.4); NEUTROPHILS ABSOLUTE AUTO 9.34 K/mm3 (1.96-9.15); NEUTROPHILS PERCENT AUTO 82 % (41-73); Platelet Count 143 K/mm3 (150-400); RDW Standard Deviation 42.3 fL (35.1-46.3); Red Blood Cell Count 3.56 M/mm3 (3.80-5.20); White Blood Cell Count 11.33 K/mm3 (4.00-11.30)
[2020-09-21 04:54] LABS: PCO2 Arterial 31.6 mmHg (35-45); PO2 Arterial 65.3 mmHg (80-100); pH Blood Arterial 7.49 (7.35-7.45)
[2020-09-21 05:05] LABS: Anion Gap 5 mmol/L (6-16); Blood Urea Nitrogen 16 mg/dL (8-24); CO2, Blood 24 mmol/L (21-32); Chloride, Blood 112 mmol/L (98-108); Creatinine, Blood 0.59 mg/dL (0.40-1.00); Glomerular Filtration Rate >60 (60-); Glucose, Blood 112 mg/dL (70-99); Potassium, Blood 3.6 mmol/L (3.5-5.5); Sodium, Blood 141 mmol/L (136-145)
--- NOTE | 2020-09-21 05:15 | NUR ---
DR. ZAMBRANO IN ROOM TO ASSESS PATIENT. NEW ORDER FOR STAT HEAD CT D/T MENTATION. WILL ALSO BEGIN NEW ORDER OF IV ABX AND ONE TIME DOSE OF LASIX.
--- NOTE | 2020-09-21 06:38 | NUR ---
SHIFT SUMMARY: PT POD#1 FOR R HIP REPAIR. PT VERY SOMNOLENT THROUGHOUT SHIFT. WILL OPEN EYES TO VERBAL STIMULI AND WILL SOMETIMES RESPOND WITH ONE WORD BUT MAJORITY OF TIME WILL FALL BACK ASLEEP. PT UNABLE TO TAKE NIGHT TIME MEDICATIONS SHE IS NOT AWAKE ENOUGH TO SWALLOW PILLS. PT NOTED TO HAVE RESPIRATORY DISTRESS THIS MORNING. HOSPITALIST NOTIFIED AND ORDERS OBTAINED (SEE OTHER NOTES) LUNGS COARSE THROUGHOUT. PT ENCOURAGED TO COUGH BUT IS UNABLE TO COUGH UP SPUTUM. COUGH NOTED TO BE WET AND CONGESTED. O2 94% ON 3LO2 VIA NC. RESPIRATORY THERAPIST IN TO SEE PATIENT. INCONITNENT AND VOIDING WELL. IV ABX INFUSING PER ORDERS. PT PAINFUL WITH REPOSITITIONING BUT AVOIDING NARCOTICS AT THIS TIME D/T MENTATION.
--- NOTE | 2020-09-21 08:37 | NUR ---
PT SLEEPING, OPENS EYES AND SAYS "YES" WHEN NAME CALLED, UNABLE TO FOLLOW COMMANDS, PHYS. TX UNABLE TO WORK W/ PT THIS AM, CONT. TO MONITOR FOR ANY CHANGES.
--- NOTE | 2020-09-21 17:49 | NUR ---
DR. MCCLAIN UPDATED ON PT'S STATUS, T MAX 100.6, STILL NOT VERY RESPONSIVE, PT STILL OPENS EYES AND ANSWERES "YES" WHEN NAME CALLED, UNABLE TO FOLLOW COMMANDS, 95% ON 3.5L VIA NC, LUNGS COARSE, RESPIRATIONS IN THE 30'S & REGULAR, PT NOT ALERT ENOUGH TO TAKE PO, DR. PEREZ AWARE PO MEDS HAVE BEEN HELD, PT'S GRAND DAUGHTER ABDI ALSO UPDATED, NO OTHER CHANGES THIS SHIFT.
--- NOTE | 2020-09-21 21:40 | NUR ---
SPOKE TO SYED PATTON WHO CALLED FOR AN UPDATE. STATUS UPDATE GIVEN PER REQUEST. SHE BECAME EMOTIONAL AND STARTED TO CRY WHILE SPEAKING OF HOW HER GRANDMOTHER HAS DECLINED. REASSURED THAT PT IS COMFORTABLE AND IS CARE FOR AND ENCOURAGED TO CALL FOR UPDATES WHEN SHE VOICED HER CONCERN ABOUT VISITING DURING THE COVID OUTBREAK, VOICED THAT SHE WILL TRY TO SLEEP AND CALL WHEN SHE WAKES. SAFETY MEAURES IN PLACE. WILL CONTINUE TO MONITOR.
[2020-09-22 04:39] LABS: BASOPHILS ABSOLUTE AUTO 0.04 K/mm3 (0.00-0.23); BASOPHILS PERCENT AUTO 0 % (0-2); EOSINOPHILS ABSOLUTE AUTO 0.08 K/mm3 (0.00-0.68); EOSINOPHILS PERCENT AUTO 1 % (0-6); Hematocrit 32.3 % (33.0-51.0); Hemoglobin 10.4 g/dL (11.5-16.0); IMMATURE GRAN ABSOLUTE AUTO 0.05 K/mm3 (0.00-0.10); IMMATURE GRAN PERCENT AUTO 0 % (0-1); LYMPHOCYTES ABSOLUTE AUTO 1.12 K/mm3 (0.84-5.20); LYMPHOCYTES PERCENT AUTO 9 % (21-46); MONOCYTES ABSOLUTE AUTO 1.23 K/mm3 (0.16-1.47); MONOCYTES PERCENT AUTO 10 % (4-13); Mean Corpuscular HGB Conc 32.2 g/dL (31.5-36.5); Mean Corpuscular Volume 87 fL (80-100); Mean Platelet Volume 10.6 fL (9.1-12.4); NEUTROPHILS ABSOLUTE AUTO 10.04 K/mm3 (1.96-9.15); NEUTROPHILS PERCENT AUTO 80 % (41-73); Platelet Count 143 K/mm3 (150-400); RDW Coefficient Variation 12.9 % (11.7-14.2); Red Blood Cell Count 3.72 M/mm3 (3.80-5.20); White Blood Cell Count 12.56 K/mm3 (4.00-11.30)
[2020-09-22 04:54] LABS: Anion Gap 5 mmol/L (6-16); Blood Urea Nitrogen 15 mg/dL (8-24); Bun/Creatinine Ratio 27.6 (12.0-20.0); CO2, Blood 27 mmol/L (21-32); Calcium, Blood 9.3 mg/dL (8.5-10.1); Chloride, Blood 110 mmol/L (98-108); Creatinine, Blood 0.54 mg/dL (0.40-1.00); Glomerular Filtration Rate >60 (60-); Glucose, Blood 118 mg/dL (70-99); Potassium, Blood 3.2 mmol/L (3.5-5.5); Sodium, Blood 142 mmol/L (136-145)
--- NOTE | 2020-09-22 04:54 | NUR ---
SHIFT SUMMARY LYING IN SEMI FOWLERS WITH EYES CLOSED. HAS RESTED OFF AND ON. WAS CHANGED MULTIPLE TIMES DUE TO WET AND SOILIED ATTENDS. HAS BECOME MORE A/O AND VERBAL. NO FURTHER ACUTE CHANGES NOTED. LEFT FA PIV INFUSING LR AT 75ML/HR. C/O PAIN WHEN BEING REPOSITIONED. DENIES FURTHER NEEDS OR WANTS AT THIS TIME. SAFETY MEASURES IN PLACE. WILL CONTINUE TO MONITOR AND GIVE HAND OFF TO ONCOMING SHIFT USING SBAR.
--- NOTE | 2020-09-22 20:07 | NUR ---
SHIFT SUMMARY PT A&OX2, POD3, AQUACEL CHANGED TODAY. ABX AND IVF INFUSING PER EMAR. BRETT FULL LIQUID DIET, FULL ASSIST AND NEEDS ENCOURAGEMENT AND SUPPORT BUT FOLLOWS DIRECTIONS WELL. PT AND OT WORKED WITH PT TODAY AND GOT HER UP TO A CHAIR, SAT UP THROUGH DINNER; BACK TO BED WITH 4 PPL MAX ASSIST. INCONTINENT OF BOWEL AND BLADDER. NO NARCS PROVIDED R/T DECREASED MENTATION. REPORT PROVIDED TO PAVAN CEBALLOS.
[2020-09-23 04:10] LABS: BASOPHILS ABSOLUTE AUTO 0.05 K/mm3 (0.00-0.23); BASOPHILS PERCENT AUTO 1 % (0-2); EOSINOPHILS ABSOLUTE AUTO 0.49 K/mm3 (0.00-0.68); EOSINOPHILS PERCENT AUTO 5 % (0-6); Hematocrit 30.5 % (33.0-51.0); Hemoglobin 9.5 g/dL (11.5-16.0); IMMATURE GRAN ABSOLUTE AUTO 0.03 K/mm3 (0.00-0.10); IMMATURE GRAN PERCENT AUTO 0 % (0-1); LYMPHOCYTES ABSOLUTE AUTO 1.02 K/mm3 (0.84-5.20); LYMPHOCYTES PERCENT AUTO 10 % (21-46); MONOCYTES ABSOLUTE AUTO 0.98 K/mm3 (0.16-1.47); MONOCYTES PERCENT AUTO 10 % (4-13); Mean Corpuscular HGB Conc 31.1 g/dL (31.5-36.5); Mean Corpuscular Volume 90 fL (80-100); Mean Platelet Volume 10.2 fL (9.1-12.4); NEUTROPHILS ABSOLUTE AUTO 7.45 K/mm3 (1.96-9.15); NEUTROPHILS PERCENT AUTO 74 % (41-73); Platelet Count 150 K/mm3 (150-400); RDW Standard Deviation 42.9 fL (35.1-46.3); Red Blood Cell Count 3.39 M/mm3 (3.80-5.20); White Blood Cell Count 10.02 K/mm3 (4.00-11.30)
[2020-09-23 04:33] LABS: Anion Gap 4 mmol/L (6-16); Blood Urea Nitrogen 21 mg/dL (8-24); Bun/Creatinine Ratio 36.5 (12.0-20.0); CO2, Blood 27 mmol/L (21-32); Calcium, Blood 9.6 mg/dL (8.5-10.1); Chloride, Blood 112 mmol/L (98-108); Creatinine, Blood 0.58 mg/dL (0.40-1.00); Glomerular Filtration Rate >60 (60-); Glucose, Blood 102 mg/dL (70-99); Potassium, Blood 3.3 mmol/L (3.5-5.5); Sodium, Blood 143 mmol/L (136-145)
--- NOTE | 2020-09-23 07:33 | NUR ---
SHIFT SUMMARY POD#4. CONFUSED/AWAKENS EASILY/COOPERATIVE WITH CARE. PT RESTED WELL T/O NIGHT. PT DENIES DISCOMFORT/NAUSEA/EMESIS. DRESSING TO LEFT HIP SCANT SS DRAINAGE, NO INCREASE THIS SHIFT. PPP, DENIES N/T + MOVES TOES WELL BLE. HEELS FLOATED. TURN Q2H. INCONTINENT IN ATTENDS. PT ASSISTED WITH FLUIDS YESTARDAY EVENING. NO ACUTE CHANGES OVER NIGHT. PT CURRENTLY RESTING IN BED WITH CALL LIGHT IN REACH.
--- NOTE | 2020-09-23 16:33 | NUR ---
SHIFT SUMMARY PT ALERT, ANSWERS SOME QUESTIONS APPROPRIATELY, PLEASANT AND COOPERATIVE. POD3 L HIP NAILING/AQUACEL DRY/INTACT. PAIN MANAGED WITH 5 MG NORCO PRN. IVF @ 100 MLS/HR, ROCEPHIN DAILY, 22G LAC. BRETT PO, FULL LIQUID DIET, FULL MEAL ASSIST AND ENCOURAGEMENT WITH WATER INTAKE. 3LNC, TCDB ENCOURAGED/ DEMONSTRATED. INCONTINENT OF BOWEL AND BLADDER, ATTENDS ON. 3-4 PP MAX ASSIST TO CHAIR/BED. WILL REPORT TO NEXT RN.
--- NOTE | 2020-09-24 05:40 | NUR ---
SHIFT SUMMARY: LEROY AROUSES EASILY AND RESPONDS APPROPRIATELY. VSS, CONTINUOUS BIOX IN PLACE. MAINTAINING OXYGEN SATURATION ON 3 L VIA NC. SHE IS TOLERATING PO INTAKE WELL. SHE IS INCONTINENT, ATTENDS IN PLACE. DRESSING TO RIGHT HIP INTACT. SHE DOES NOT REMEMBER THE HIP PRECAUTIONS, TOWEL ROLL IN PLACE BETWEEN KNEES. SHE IS LYING IN BED WITH HER CALL LIGHT IN REACH. SHE HAS NOT USED HER CALL LIGHT THIS SHIFT. SHE DOES ANSWER QUESTIONS APPROPRIATELY. ONE NORCO GIVEN FOR PAIN THIS SHIFT. WILL REPORT TO DAY SHIFT RN.
--- NOTE | 2020-09-24 07:33 | NUR ---
IV TO L AC PRESENT AT MY ASSESSMENT
--- NOTE | 2020-09-24 12:09 | NUR ---
RECEIVED PHONE CALL FROM PATIENTS GRANDDAUGHTER ABDI. UPDATED ABDI RE. THAT PATIENT HAS APPEARED RELAXED HAS SOME PAIN WITH MOVEMENT BUT RESOLVES AFTER REPOSITIONED. ASKED ABDI ABOUT PATIENTS FOOD PREFERENCES AND RECEIVED A LIST OF PATIENTS FOOD LIKES. INFORMED ABDI OF VISITING HOURS CURRENTLY IN PLACE AT OUT FACILITY AND ALLOW 1 PERSON PER DAY BETWEEN HOURS OF 2-6 PM. WILL DISCUSS DIETARY PREFERENCES WITH LOCOMOTIVE BOILERMAKER
--- NOTE | 2020-09-24 12:20 | NUR ---
SPOKE WITH TANK SETTEREMILEE, REGARDING PTS FOOD PREFERENCES. SPOKE WITH DR JARQUIN AND PATIENTS DIET ADVANCED TO SOFT
--- NOTE | 2020-09-24 15:27 | NUR ---
SITTING IN CHAIR, PT GIVEN CRANBERRY JUICE AND ENSURE
--- NOTE | 2020-09-24 17:33 | NUR ---
SUMMARY PT ORIENTED TO PERSON ONLY THROUGHOUT SHIFT, CALM AND COOPERATIVE. PT ASSISTED WITH MEALS AND ABLE TO PARTICIPATE IN FEEDING SELFAND BRETT REGULAR DIET. PT CALLED X1 FOR ASSIST TO USE TOILET, INCONTINEBT OF URINE AT TIMES AND ATTENDS IN PLACE. HIP DRESSING DRY AND INTACT. BIOX GREATER THAN 93% THROUGHOUT SHIFT
--- NOTE | 2020-09-25 04:43 | NUR ---
SHIFT SUMMARY R HIP FX REPAIR POD4, A/O W/ SOME FORGETFULNESS BUT EASILY REORIENTED, OCCASIONAL CONFUSED SPEECH, NON AMBULATORY DURING SHIFT, TOLERATING ORAL, VOIDING BUT INCONONTINENT, PASSING FLATUS, SLIGHT INCREASE IN PAIN W/ MOVEMENT/REPOSITIONING. VSS, BIOX IN PLACE, FLUIDS INFUSTING, BED ALARM ON. WILL CONTINUE TO MONITOR AND REPORT TO ONCOMING DAY RN.
[2020-09-25 07:17] LABS: Hematocrit 28.1 % (33.0-51.0); Hemoglobin 8.9 g/dL (11.5-16.0)
[2020-09-25 07:38] LABS: Anion Gap 5 mmol/L (6-16); Blood Urea Nitrogen 11 mg/dL (8-24); Bun/Creatinine Ratio 24.3 (12.0-20.0); CO2, Blood 29 mmol/L (21-32); Calcium, Blood 9.6 mg/dL (8.5-10.1); Chloride, Blood 111 mmol/L (98-108); Creatinine, Blood 0.45 mg/dL (0.40-1.00); Glomerular Filtration Rate >60 (60-); Glucose, Blood 106 mg/dL (70-99); Potassium, Blood 3.6 mmol/L (3.5-5.5); Sodium, Blood 145 mmol/L (136-145)
--- NOTE | 2020-09-25 17:27 | NUR ---
SUMMARY: PT IS S/P R HIP REPAIR. NO ACUTE CHANGE TODAY, VSS. CONFUSED AT BASELINE. PT REPOSTIONED AND ATTENDS CHANGED Q2 PRN. ABLE TO WORK WITH THERAPY A LITTLE, SEE NOTES. MEDICATED FOR PAIN PER EMAR. NO ACUTE SAFETY CONCERNS. PLAN IS FOR PLACEMENT IN [facility], CLOSER TO PT'S GRAND DAUGHTER. WILL CTM AND REPORT TO DES CEBALLOS.
--- NOTE | 2020-09-26 05:33 | NUR ---
SHIFT SUMMARY R POSTERIOR HIP NAILING POD5, ALERT AND INTERMITTENTLY ORIENTED/CONFUSED, PT ABLE TO IDENTIFY SELF BUT HAS TROUBLES WITH DATE AND BIRTHDAY, ORIENTED TO SITUATION BUT FORGETS WHO THE NURSING STAFF ARE, . TAKES PILLS WELL W/ PUDDING, TOLERATES FLUIDS WELL, INCONTINENT IN ATTENDS, C/O INCREASED PAIN W/ REPOSITIONING AND ATTENDS CHANGES. PT EDUCATED ON IMPORTANCES OF REPOSITIONING AND CHANGING WET DEPENDS. PT KEEPS REMOVING BIOX SENSOR, ENCOURAGED TO KEEP IT ON AND EDUCATED FOR WHAT IT DOES AND WHY WE HAVE IT ON HER. DRESSING C/D/I. ENCOURAGED TO MAINTAIN GOOD FLUID INTAKE, OFFERED DRINKS W/ ROUNDING. CALL LIGHT IN REACH, BED IN LOW POSITION, BED ALARM ACTIVE, WILL CONTINUE TO MONITOR AND REPORT TO ONCOMING DAY RN.
--- NOTE | 2020-09-26 11:20 | NUR ---
Clinical Visit: Pt appears to be resting comfortably. This service writer did not wake her up. Reviewed with nurse Abbie. She reports that pt has been painful with repositioning and movement. She is able to feed herself when prompted and assistance with starting with meals. Incontinent, pt has not transfered to chair, she has stood at the side of bed with therapy. Call placed to granddaughter, Pham. She is tearful during the phone conversation. Pham lives in [place]. She reports that she is trying to get her grandmother placed in a memory care facility in either [place] or [place]. Her grandmother came to [facility] from [facility] due to a fall and hip fracture. Pham is highly upset that [facility] has allowed her grandmother to fall repeatedly. Many attepts made for advance care planning. Pt would be appropriate for hospice in the near-future, with dementia diagnosis. Pham is actually aware that her grandmother's morbidity is higher with such an injury. However, with Pham's current problems, she is only focused on getting her grandmother safely to somewhere in [facility]. Encouraged self care for Pham. Assurances given that care management will assist her with this by sending referals out on pt's behalf for placement, as notes indicate this. She thanks this service writer for the phone call.
--- NOTE | 2020-09-26 18:45 | NUR ---
SUMMARY: NO CHANGE TODAY. VSS. CONTINUING Q2 TURNS AND CHANGES. PREVENTATIVE MEPILEX APPLIED TO COCCYX. PT CONTINUES TO SEEM MORE PAINFUL WITH TURNS, MEDICATED PER EMAR. DC PENDING FOR TOMORROW, NO ACUTE SAFETY CONCERNS AT THIS TIME.
--- NOTE | 2020-09-27 07:38 | NUR ---
SHIFT SUMMARY R GAMMA NAIL POD7, PT CONFUSSED, BED ALARM ON, 3 RAILS UP FOR SAFETY. TAKES MEDS W/ PUDDING OR APPLE SAUCE. VOIDING INCONTINENTLY, BM DURING SHIFT, BEDREST, TOLERATING PO. CALL LIGHT IN REACH, REPORT GIVEN TO DAY RN.
--- NOTE | 2020-09-27 08:57 | NUR ---
RECENTLY TO SEE PT WITH SALES OPERATIONS LEAD.
--- NOTE | 2020-09-27 17:13 | NUR ---
SHIFT SUMMARY PT EATING AND DRINKING, VOIDING. PT HAD BM TODAY. PT WORKED WITH THERAPY. PT UP IN CHAIR WTIH TAB ALARM IN PLACE. PT BEEN ASSISTED WITH ADL'S PRN. PT DRINKING WITHOUT DIFFICULTY. PT BEEN PLEASANT AND COOPERATIVE.
--- NOTE | 2020-09-28 04:48 | NUR ---
SHIFT SUMMARY PT HAS BEEN ALERT, ORIENTED TO SELF AND OCC TO . PT HAS BEEN REPOSITIONED MULT TIMES OVERNIGHT. ATTENS IN PLACE FOR INCONTINENCE; CHANGED PRN. PAIN MANAGED WITH PO PAIN MED PER ORDERS. BIOX IN PLACE OVERNIGHT. AFTER DOSE OF ONE NORCO, PT'S O2 SAT WAS DROPPING TO 87% ON RA; PLACED ON 2L O2 NC. O2 SAT WITH 2L HAS BEEN MAINTAINING BETWEEEN 94-97%. PT RESTING AT THIS TIME.
[2020-09-28 09:37] LABS: Hematocrit 36.1 % (33.0-51.0); Hemoglobin 10.9 g/dL (11.5-16.0)
--- NOTE | 2020-09-28 19:00 | NUR ---
SHIFT SUMMARY PT A&OX4, VSS, AQUACEL DRESSING CHANGED TODAY. PT CAN STAND BUT HAS DIFFICULTY PIVOTING TO GET INTO CHAIR. PAIN MANAGED WITH 5 MG NORCO. BRETT PO, DENIES N&V, NEEDS MEAL ASSISTANCE AND ENCOURAGEMENT. WILL REPORT TO ONCOMING DES RN.
--- NOTE | 2020-09-29 03:48 | NUR ---
SHIFT SUMMARY NO ACUTE CHANGES THIS SHIFT. DRESSING TO RIGHT HIP CDI. PAIN MANAGED WITH REPOSITIONING AND [address]; CHANGED PRN. ENCOURAGED AND ASSISTED PT W/PO INTAKE. 2X LARGE BM'S THIS SHIFT. UP TO BSC WITH MAX ASSIST/GB. PLACED ON 2L NC AT 0300 R/T SPO2 AT 85%, NOW AT 93-95%. CONT BIOX IN PLACE. PT CURRENTLY RESTING IN BED WITH CALL LIGHT IN REACH AND ALARM ON FOR SAFETY. WILL CONT TO MONITOR AND GIVE REPORT TO ONCOMING.
--- NOTE | 2020-09-29 18:10 | NUR ---
SUMMARY PT SAT IN CHAIR THIS SHIFT, NO ATTEMPTS TO GET SELF OUT OF CHAIR. PT ASKED TO USE COMMODE FOR BM, INCONT OF URINE. PT TAKING SMALL AMOUNT OF MEALS AND DRINKS ENSURE, NEEDS ENCOURAGEMENT AND ASSIST WITH MEALS OR WILL LEAVE MEALS UNTOUCHED WHEN NOT ASSISTED.MEDICATED WITH TYLENOL X1 FOR REPORT OF RIGHT HIP PAIN
--- NOTE | 2020-09-30 04:34 | NUR ---
SHIFT SUMMARY PT AA0X1. FOLLOWS DIRECTIONS AND HAS BEEN PLEASANT DURING SHIFT. INC/CON OF VOID. WILL CALL OUT FOR THE COMMODE BUT DOES NOT USE CALL LIGHT. LARGE INC BM AT START OF SHIFT. DENIES PAIN EXCEPT ON OCCASIONAL MOVEMENT. DOES NOT FOLLOW HIP PRECAUTIONS AND NEEDS PROMPTING WHEN TRANSFERING. REPOSITIONS SELF FREQUENTLY IN BED. DRESSING CDI AT THIS TIME. PLAN IS TO AWAIT PLACEMENT FOR DISCHARGE.
--- NOTE | 2020-09-30 18:10 | NUR ---
SHIFT SUMMARY PATIENT HAD 3 LARGE LOOSE STOOLS TODAY, THEN ONE SMALL AT APPROX 1600. NO MUCUS OR FOUL ODOR DETECTED. TOLERATING PO. MINIMAL PAIN, PO PAIN [employer] THIS AM. PATIENT HAS TOLERATED REPOSITIONING AND UP TO CHAIR WELL W/O C/O. R HIP DRESSING D&I. CIRC CHECKS WNL. NO C/O AT THIS TIME.
--- NOTE | 2020-10-01 05:39 | NUR ---
SHIFT SUMMARY PT [id number]. PLEASANT AND COOPERATIVE. MEDICATED FOR PAIN X1. HAS BEEN RESTING IN BED DURING THE NIGHT. INC OF VOID AND STOOL. STOOL BECOMING MORE FORMED TOWARDS END OF SHIFT. PT REPOSITIONS SELF AND WITH ASSIST. UNABLE TO FOLLOW PRECAUTIONS. 2 PERSON MAX ASSIST WITH TRANSFER TO COMMODE. PLAN TO CONTINUE AWAITING DISCHARGE PLACEMENT.
--- NOTE | 2020-10-01 17:11 | NUR ---
SHIFT SUMMARY NO CHANGES THIS SHIFT. VSS. ON RA. UP TO CHAIR/BSC. VOIDING WELL. MEDICATED FOR PAIN X 1. PATIENT BEARS WEIGHT WELL, MOVES SLOWLY W/O S/SX PAIN. TOLERATING PO. NO LOOSE STOOLS THIS SHIFT. CONT TO MONITOR.
--- NOTE | 2020-10-02 05:10 | NUR ---
SHIFT SUMMARY PT HAS BEEN SLEEPY BUT EASILY AROUSABLE OVERNIGHT. ORIENTED X 1-2. BED ALARM ON. USING ATTENS PT HAS BEEN INCONTINENT. ATTENS CHANGED AND PT REPOSITIONED MULT TIMES T/O SHIFT. TAKING PILLS WHOLE WITH PUDDING. PT RESTING AT THIS TIME. APPEARS COMFORTABLE. WCTM.
--- NOTE | 2020-10-02 20:07 | NUR ---
SHIFT SUMMARY POD 12 R HIP FX REPAIR, ALERT W/ DEMENTIA, REORIENTS WELL, UP TO CHAIR TODAY, PT DOES WELL W/ SIT TO STAND EXERCISES, TAKES PILL WHOLE W/ PUDDING OR APPLE SAUCE. TOLERATING PO, VOIDING/BM INCONTINENT W/ DEPENDS IN PLACE, PASSING FLATUS. CALL LIGHT IN REACH, REPORT GIVEN TO DES CEBALLOS.
--- NOTE | 2020-10-03 05:27 | NUR ---
SHIFT SUMMARY PT A/O X2-3. BED ALARM ON. TOLERATING PO INTAKE. ATTENS IN PLACE FOR INCONTINENCE AND CHANGED PRN. REPOSITIONED MULT TIMES. PT ALSO MOVES SELF WELL IN BED BUT DOES NOT FOLLOW ORTHO PRECAUTIONS DESPITE EDUCATION. TAKES PILLS WHOLE WITH PUDDING. PT RESTING AT THIS TIME.
--- NOTE | 2020-10-03 19:13 | NUR ---
SHIFT SUMMARY POD13 R HIP FX REPAIR, ALERT W/ INTERMITTENT CONFUSION, TAB ALARM USED T/O SHIFT WHILE UP TO CHAIR, BED ALARM ON WHEN IN BED, VSS, TRANSITIONS WELL FROM BED TO CHAIR. STANDING EXERCISES W/ DEPENDS CHANGES T/O SHIFT. DAUGHTER CAME IN TO VISIT TODAY, GAVE UPDATE ON SITUATION AND NEXT STEPS GOING FORWARD. TOLERATING PO, VOIDING WELL INCONTINENT. CALL LIGHT IN REACH, REPORT GIVEN TO DES RN.
--- NOTE | 2020-10-04 06:52 | NUR ---
SHIFT SUMMARY PT ALERT, ORIENTED TO SELF, BIRTHDAY, AND FOLLOWING DIRECTIONS. ATTENS IN PLACE AND CHANGED PRN. PT ALSO REPOSITIONED MULT TIMES AND MOVES HERSELF WELL IN BED. BED ALARM ON OVERNIGHT. PT DID NOT WANT PAIN MEDICATION OVERNIGHT. NO ACUTE CHANGES. PT WAS UP TO BSC W/ 2X ASSIST AND FWW.
--- NOTE | 2020-10-04 17:47 | NUR ---
SHIFT SUMMARY S/P R HIP FX REPAIR, ALERT W/ INTERMITTENT CONFUSION, VSS, ONE PERSON ASSIST W/ TRANSFERS AND AMBULATION, WORKED WELL W/ PHYSICAL THERAPY TODAY, AMBULATED OUT TO MIDDLE OF THE COLEY W/ 1 PERSON ASSIST/FWW/GB. ASSISTS W/ REPOSITIONING, NO BED SORES NOTED, BED ALARM IN PLACE WHEN IN BED, TAB ALARM IN USE WHEN UP TO CHAIR. CALL LIGHT IN REACH, WILL CONTINUE TO MONITOR AND REPORT TO ONCOMING NOC RN.
--- NOTE | 2020-10-05 06:47 | NUR ---
SHIFT SUMMARY LYIING SEMI FOWLERS WITH EYES CLOSED. NO SIGNIFICANT CHANGES SINCE START OF SHIFT, HAS RESTED WELL. PAIN MANAGED WITH PRN PO MEDS. ABLE TO ASSSIST WITH TURNING AND CARE. HEALING WOUND TO RIGHT HIP IS C/D/I, OPEN TO AIR. INCONTINENT OF BOWEL AND BLADDER, WEARS DEPENDS. DENIES FURTHER PAIN, DISCOMFORT, OR NEEDS AT THIS TIME. SAFETY MEASURES IN PLACE. WILL CONTINUE TO MONITOR AND GIVE HAND OFF TO ONCOMING SHIFT USING SBAR.
--- NOTE | 2020-10-05 18:14 | NUR ---
SHIFT SUMMARY POD15 R HIP FX REPAIR, ALERT W/ INTERMITTENT CONFUSION, REORIENTS WELL, TOLERATING PO, VOIDING INCONTINENTLY, BM TODAY. UP TO CHAIR T/O SHIFT. CALL LIGHT IN REACH, WILL CONTINUE TO MONITOR AND REPORT TO NOC RN.
--- NOTE | 2020-10-06 08:20 | NUR ---
PT UP TO CHAIR WITH MULT ASSIST. TAB ALARM IN PLACE. PT HAVING BREAKFEAST UPRIGHT IN CHAIR.
--- NOTE | 2020-10-07 01:24 | NUR ---
IS IN REACH.
--- NOTE | 2020-10-07 05:36 | NUR ---
SHIFT SUMMARY: NO SIGNIFICANT CHANGES THIS SHIFT. WOUND TO RT HIP OPEN TO AIR AND APPEARS WNL. MILD SWELLING NOTED. PT INCONTINENT X1. OTHERWISE ABLE TO COMMUNICATE WITH STAFF THE NEED TO VOID. PT 1-2 MODERATE ASSIST FROM CHAIR TO BED. HOLLERING OUT AT TIMES WHEN NEEDING ASSISTANCE AND NOT USING CALL LIGHT. PT BRETT MEDS WHOLE WITH WATER. PT BEING MEDICATED WITH TYLENOL PER EMAR.
--- NOTE | 2020-10-07 10:09 | NUR ---
OT AND FEMALE DESIGN INSERTER IN WITH PT.
--- NOTE | 2020-10-07 10:31 | NUR ---
DR RADFORD HERE TO SEE PT, DISCUSSED PT'S STATUS INCLUDING PT HAVING LOOSE STOOL THIS AM AFTER HAVING SCHEDULED STOOL SOFTENER. REPORTED TO HOLD IF HAVING DIARHEA/LOOSE STOOL.
--- NOTE | 2020-10-07 19:14 | NUR ---
SHIFT SUMMARY PT EATING AND DRINKING, VOIDING. PT HAD LOOSE BM TODAY, DISCUSSED WITH DR RADFORD WHO REPORTED IF PT HAVING LOOSE STOOL TO HOLD STOOL SOFTENER, DISCUSSED THIS WITH HS RN. PT AMBULATED IN HALLWAY WITH MASK, WALKER, GB, AND ASSIST. PT BEEN ASSISTED WITH ADL'S PRN. PT BEEN UP IN CHAIR MOST OF DAY WITH TAB ALARM IN PLACE. PT HAS TAB ALARM IN PLACE AT THIS TIME IN RECLINER.
--- NOTE | 2020-10-07 20:24 | NUR ---
LIGHT IS IN REACH.
--- NOTE | 2020-10-08 00:11 | NUR ---
LIGHT IS IN REACH.
--- NOTE | 2020-10-08 07:43 | NUR ---
SHIFT SUMMARY PT RESTED WELL T/O NIGHT. CONFUSED/COOPERATIVE AT TIMES. DISCOMFORT CONTROLLED WITH X1 TYLENOL. NO NAUSEA/EMESIS. INCISION TO RIGHT HIP C/D/I, INTERIOR DESIGN FACULTY MEMBER. NO ACUTE CHANGES OVER NIGHT. PT INCONTINENT IN ATTENDS. TURN Q2H + PT MOVES SELF WELL IN BED, CONTINUE TO ENCOURAGE. PT CURRENTLY RESTING IN BED WITH CALL LIGHT IN REACH. REPORT TO DAY SHIFT RN.
--- NOTE | 2020-10-08 08:10 | NUR ---
pt awake reposistioned to eat breakfast meds given as sched pt drowsy but pleasant dr by earlier to see pt but she fell back to sleep
--- NOTE | 2020-10-08 10:56 | NUR ---
OOB INTO CHAIR PO TYLENOL GIVEN FOR PAIN CHAIR ALARM ON
--- NOTE | 2020-10-08 13:30 | NUR ---
called pt's granddaughter robin update given over the phone
--- NOTE | 2020-10-08 16:10 | NUR ---
pt given a snack a vanilla pudding pt stated she was hungry
--- NOTE | 2020-10-09 05:41 | NUR ---
SHFIT SUMMARY NO ACUTE CHANGES THIS SHIFT. PT APPEARS TO HAVE SLEPT WELL T/O NIGHT. IS PLEASANTLY CONFUSED, ABLE TO FOLLOW DIRECTIONS AND REPORTS PAIN. MEDICATED X1 FOR PAIN WITH TYLENOL. UP TO BS WITH 1 INCONT VOID. ABLE TO REPOSITION SELF SOME IN BED. BED ALARM ON FOR SAFETY. PT CURRENTLY RESTING IN BED WITH CALL LIGHT IN REACH AND ALARM ON. WILL CONT TO MONITOR AND
--- NOTE | 2020-10-09 17:17 | NUR ---
SHIFT SUMMARY PT AO, PLEASANT WITH SOME CONFUSION DUE TO HX DEMENTIA, HAD TO REORIENT PT SEVERAL TIMES. AMBULATE AND UP IN CHAIR TODAY, TOLERATING 1 MIN ASSIST. SHE HAS DECREASED APPETITE. REPORTS PAIN INTERMITTENTLY, MEDICATED W/ TYLENOL TWICE DURING MY SHIFT. BED ALARM AND CHAIR ALARM FOR SAFETY. CALL LIGHT W/IN REACH. WILL CONT TO MINITOR AND REORIENT TO ROOM.
--- NOTE | 2020-10-09 18:33 | NUR ---
ARRIVES TO FLOOR ABOUT 1814. ALERT. LUNGS DIM TO CLEAR T/O. RT HIP SURGICAL SITE WITH NO SIGNS OF INFECTION. NO STITCHES. WATER, JUICE GIVEN. WARM BLANKET APPLIED. ORIENTED PATIENT AND TO PLAN . UNLABORED RESPIRATIONS. WCTM
--- NOTE | 2020-10-09 18:38 | NUR ---
PT SENT TO MEDICAL FLOOR AT 1800. REPORT GIVENT TO ADAL. CALLED AND NOTIFIED [facility] FOR AN UPTADE.
--- NOTE | 2020-10-09 19:15 | NUR ---
ASSUMED CARE RECEIVED REPORT FROM AMY Fournier RN. ASSUMED CARE OF PT. PT ALERT, RESTING IN BED COMFORTABLY AT THIS TIME, NO S/S ACUTE DISTRESS NOTED, RESPS E/U, WATCHING TV. DENIES NEEDS AT THIS TIME. CALL LIGHT, POSSESSIONS IN REACH, BED IN LOW POSITION WITH ALARMS ON. WCTM.
--- NOTE | 2020-10-10 00:08 | NUR ---
SPOKE TO DR. ZAMBRANO REGARDING PT'S N/V, AND NO IV ACCESS. ORDERS RECEIVED. CONTINUE TO MONITOR.
--- NOTE | 2020-10-10 04:41 | NUR ---
SHIFT SUMMARY PT ASLEEP AT THIS TIME, NO S/S ACUTE DISTRESS NOTED, WAS MONITORED EVERY 1-2 HOURS WITH NEEDS MET. NO FURTHER EPISODES OF N/V NOTED, PT HAS BEEN COMFORTABLE T/O NIGHT. VS REVIEWED, WNL. PT MEDICATED FOR PAIN X1, WITH EFFECTIVE RELIEF. NO S/S AGITATION NOTED. PT DENIES NEEDS AT THIS TIME. CALL LIGHT, AND POSSESSIONS IN REACH, BED IN LOW POSITION WITH ALARMS ON. WCTM, REPORT OFF TO DAY RN.
--- NOTE | 2020-10-10 11:11 | NUR ---
UPDATE GRANDDAUGHTER, ABDI, ON CONDITION.
--- NOTE | 2020-10-10 16:19 | NUR ---
ALERT. DEMENTIA. AT TIMES NOT COOPERATIVE. AT TIMES REDIRECTABLE. SURGICAL SCAR RT LATERAL HIP WITH NO SIGNS INFECTION. ONE PERSON ASSIST IN ROOM. IMPULSIVE. DOES NOT SEEM TO UNDERSTAND FALL PREVENTION EDUCATION. ALARMS USED. UNAWARE OF PLACEMENT ISSUES. UNLABORED RESPIRATIONS. WCTM
--- NOTE | 2020-10-11 04:31 | NUR ---
84 year old Female of Maori origin able to communicater. High fall risk sets off bed alarm several times. Hx of recent falls & hip fx which has been repaired & healing well. PT up to bathroom with 1 minimal assist FWW. Medicated for CO rt hip pain with 1 norco 5/325 mg tab. PT has poor appetite. ate 5% dinner took snack with meds with feeding. Took fluids with assist & cues. Has hx of dementia, schitzo. cooperative with meds & cares. Was at [facility] planning involved. Jonah has POA not wanting PT to go back there.
--- NOTE | 2020-10-11 10:00 | NUR ---
PT PLEASANT CONFUSED. DENIES PAIN AT THIS TIME. IS QUIET SPOKEN. ALERT TO SELF AND SOME OF FAMILY. HX DEMENTIA. H/R REG, NO MURMER NOTED. NO TELE, LUNGS CLEAR, RESP EASY, UNLABOREED. ON R.A. BT X4 LAST BM UNKNOWN BY PT. VIODS INCONT. RT HIP FROM SURG. SCAR CDI. BED IN LOW POSITIOIN, OANH LLITE IN REACH, BED ALARM ON FOR SAFEYT
--- NOTE | 2020-10-11 17:15 | NUR ---
PT RESTING SOME THIS AFT. BACK TO BED FROM CHAIR. NO NEW CONCERHS AT THIS TIME. PENDING PLACEMNT. BED IN LOW POSITION, CALL LITE IN REACH, BED ALARM ON FOR SAFETY
--- NOTE | 2020-10-12 05:07 | NUR ---
PT continues cooperative, weak but able to communicate & ambulate with assist& front wheeled walker. Appetite continues poor takes fluids fair with straw. Medicated with tylenol 650 mg PO at HS for RT hip pain with helpful effect.
[2020-10-12 06:01] LABS: Hematocrit 35.1 % (33.0-51.0); Hemoglobin 10.5 g/dL (11.5-16.0); Mean Corpuscular HGB 27.7 pg (26.0-34.0); Mean Corpuscular HGB Conc 29.9 g/dL (31.5-36.5); Mean Corpuscular Volume 93 fL (80-100); Mean Platelet Volume 10.3 fL (9.1-12.4); Platelet Count 240 K/mm3 (150-400); RDW Coefficient Variation 13.2 % (11.7-14.2); RDW Standard Deviation 44.7 fL (35.1-46.3); Red Blood Cell Count 3.79 M/mm3 (3.80-5.20)
[2020-10-12 06:12] LABS: Albumin, Blood 2.9 g/dL (3.4-5.0); Anion Gap 6 mmol/L (6-16); Blood Urea Nitrogen 22 mg/dL (8-24); Bun/Creatinine Ratio 28.2 (12.0-20.0); CO2, Blood 27 mmol/L (21-32); Chloride, Blood 113 mmol/L (98-108); Creatinine, Blood 0.78 mg/dL (0.40-1.00); Glomerular Filtration Rate >60 (60-); Glucose, Blood 97 mg/dL (70-99); Potassium, Blood 4.3 mmol/L (3.5-5.5); Sodium, Blood 146 mmol/L (136-145)
--- NOTE | 2020-10-12 17:25 | NUR ---
SHIFT SUMMARY PATIENT MEDICATED X3 FOR PAIN THIS SHIFT. PATIENT DENIES NAUSEA AND SHORTNESS OF BREATH. PATIENT UP SBA W/FWW TO BSC. PATIENT WORKED WITH PT TODAY. EATING AND DRINKING WELL.
--- NOTE | 2020-10-13 04:53 | NUR ---
84 year old Female with hx of dementia & schitzophrenia continues pleasant & able to communicate needs. She reportedly had better appetite yesterday & takes very little oral at shift mgr. Had fecal incontinence at beginning of shift. She required assist to clean & change depends. She tolerates ambulation to bathroom with 1 assist fww gaitbelt. Dc planning continues for safe placement with POA GTR involved. No agression, cooperative with meds & therapies.
--- NOTE | 2020-10-13 17:16 | NUR ---
SHIFT SUMMARY PATIENT MEDICATED X2 FOR PAIN THIS SHIFT. DENIES NAUSEA AND SHORTNESS OF BREATH. UP 1X W/FWW AND GAIT BELT. EATING AND DRINKING WELL. UP IN RECLINER FOR MEALS.
--- NOTE | 2020-10-14 04:37 | NUR ---
SHIFT SUMMARY RESPONDS TO VERBAL STIMULI, ABLE TO MAKE NEEDS KNOWN. COOPERATIVE WITH CARE. APPEARED TO REST OFF AND ON T/O SHIFT. NO ACUTE NEEDS OR CHANGES OVERNIGHT. VSS/AFEBRILE. BED REAMINED IN LOWEST POSITION; ALARM ON. CONTINUE WITH CURRENT PLAN OF CARE. REPORT TO ONCOMING RN.
--- NOTE | 2020-10-14 18:18 | NUR ---
SHIFT SUMMARY PT AxOx3 WITH INTERMITTENT CONFUSION. MOSTLY COOPERATIVE WITH CARE. OCCASIONAL REFUSING REPOSITIONS. SOME IRRITABLE MOOD SWINGS TODAY, INCREASING THIS EVENING. C/O PAIN IN R HIP. MEDICATED PER EMAR. UP IN RECLINER FOR MEALS. POSTERIOR HIP PRECAUTIONS FOLLOWED PER ORDER. GOOD APPETITE. WORKED WITH PT/OT TODAY. PLAN IS PENDING PLACEMENT FOR SENIOR LIVING CARE. VITALS REVIEWED. INCREASED HR NOTED TODAY. PT DENIES CP OR SOB. WILL CONTINUE TO MONITOR VITALS PER PROTOCOL. PT CURRENTLY RESTING IN BED EATING DINNER. CALL LIGHT IN REACH. PT DENIES ANY FURTHER NEEDS AT THIS TIME.
--- NOTE | 2020-10-15 04:49 | NUR ---
SHIFT SUMMARY RESPONDING TO VERBAL STIMULI AND ABLE TO MAKE NEEDS KNOWN. COOPERATIVE WITH CARES. NO C/O OR S/S OF PAIN/DISCOMFORT. APPEARED TO REST OFF AND ON T/O SHIFT. NO ACUTE NEEDS OR CHANGES OVERNIGHT. VSS/AFEBRILE. BED REMAINS IN LOWEST POSITION; ALARM ON. WILL CONTINUE WITH CURRENT PLAN OF CARE. REPORT TO ONCOMING RN.
--- NOTE | 2020-10-15 18:08 | NUR ---
SHIFT SUMMARY PT AxOx2-3. CONFUSED ON AND OFF AND SLOW TO RESPOND TO QUESTIONS. FLAT AND WITHDRAWN AFFECT. MORE COOPERATIVE WITH CARE TODAY COMPARED TO YESTERDAY. PHYSICAL THERAPY WORKED WITH PATIENT TODAY. ATTEMPTS TO GET UP TO USE BATHROOM, BUT OFTEN INCONTINENT. HIP PRECAUTIONS IN PLACE. MEDICATED WITH TYLENOL X1 FOR PAIN TODAY. PT UP IN RECLINER TODAY. PLACEMENT IN PROGRESS. VITALS REVIEWED. PT CURRENTLY RESTING IN BED WITH CALL LIGHT IN REACH. DENIES ANY NEEDS AT THIS TIME.
--- NOTE | 2020-10-16 04:35 | NUR ---
SHIFT SUMMARY: VSS. AFEB. AAOX2-3. SLOW TO RESPOND. MAKING NEEDS KNOWN. AMB W/1 ASSIST AND FWW. MED X 1 FOR R HIP PAIN. PT HAS SINCE SLEPT WELL. NON-COMPLIANT W/ POSTERIOR HIP PRECAUTIONS. PT REMINDED OF PRECAUTIONS BUT IS FORGETFUL. OBSERVED CROSSING LEGS MORE THAN ONCE. PRODUCT SAFETY CONSULTANT/PUSHES/PULLS ALL WEAK AND EQUAL BILATERALLY. NO INVERSION/EVERSION OF LE. NO ACUTE CHANGES OVERNIGHT. WILL CONT TO MONITOR.
--- NOTE | 2020-10-16 17:33 | NUR ---
PATIENT A/O TO SELF AND FAMILY ONLY. CONTINUES TO HAVE PAIN TO R HIP/LEG. TYLENOL AND NORCO GIVEN TO TREAT WITH SOME RELIEF. TOLERATING SOFT DIET, TAKES PILLS WHOLE WITH PUDDING. UP TO CHAIR MULTIPLE TIMES TODAY WITH FWW AND 1 ASSIST. COOPERATIVE WITH CARE, ABLE TO MAKE NEEDS KNOWN. AWAITING PLACEMENT.
--- NOTE | 2020-10-17 04:03 | NUR ---
SHIFT SUMMARY: VSS. AFEB. AA0X2. WILL MAKE NEEDS KNOWN WHEN ASKED DIRECTLY. MORE WITHDRAWN AND QUIET TONIGHT. SLEPT THROUGH MOST OF THE NIGHT. REMAINED IN BED, INCONTINENT. ABLE TO DEMONSTRATE ESTATE PLANNING DIRECTOR BUT DID NOT UNDERSTAND REQUEST TO DEMONSTRATE BLE PUSHES/PULLS. MED X 1 FOR PAIN. INCISION TO R HIP HEALED. NO ACUTE CHANGES OVERNIGHT. NO SOB OR CHEST PAIN, PT REFUSED SCDS. NO ACUTE CONCERNS AT THIS TIME. WILL CONT TO MONITOR.
--- NOTE | 2020-10-17 18:06 | NUR ---
PATIENT CONTINUES TO AWAIT PLACEMENT. UP TO CHAIR MULTIPLE TIMES THIS SHIFT, TRANSFERS WITH FWW AND SBA. CONTINUES TO HAVE R HIP/LEG PAIN. ZOFRAN GIVEN X1 FOR NAUSEA TODAY AND PATIENT HAD DIARRHEA X1 THIS EVENING. SKIN INTACT. COOPERATIVE WITH CARE AND ABLE TO MAKE NEEDS KNOWN. FALL PRECAUTIONS IN PLACE, DOES NOT USE CALL LIGHT BUT WILL HOLLER OUT. VSS, ON RA.
--- NOTE | 2020-10-18 06:36 | NUR ---
SHIFT SUMMARY: VSS. AFEB. AA0X2. INCONTINENT OF BOWEL AND BLADDER TONIGHT. MED X 1 FOR PAIN AT HS. PT APPEARS TO HAVE SLEPT MOST OF THE NIGHT. DENIES CHEST PAIN AND SOB. INCISION OVER R HIP HEALED W/EDGES WELL APPROXIMATED. NO INVERSION/EVERSION OF THE R FOOT. BILATERAL PUSHES/PULLS EQUAL. NO ACUTE OVERNIGHT CHANGES.
--- NOTE | 2020-10-18 17:46 | NUR ---
PATIENT IS ALERT AND ORIENTED TO SELF AND FOLLOWING DIRECTIONS. PATIENT COMPLAINED OF TROUBLE HEARING OUT OF HER RIGHT EAR THIS MORNING, EAR DROPS WERE ORDERED. PATIENT IS UP TO THE RECLINER FOR MEALS. SHE USES THE BSC. WILL CONTINUE TO MONITOR
--- NOTE | 2020-10-18 21:05 | NUR ---
ASSUMED CARE. LEROY AOX1, DOES NOT KNOW WHERE SHE IS AT OR WHY. HAD TROUBLE STATING . STATES "SORE" AND RUBS RIGHT HIP. PAIN MED WAS GIVEN EARLIER. SHE WAS ABLE TO MOVE THE LEG WITHOUT GRIMICING. DENIES ANY NUMBNESS OR TINGLING. GOOD CIRC. SKIN PALE BUT W/DRY. NO RASH IN GROIN, STILL APPLIED POWDER TO PREVENT. LUNGS CLEAR. HR REGULAR. ADMINISTERED MEDS, IN APPLESAUCE. SHE IS ABLE TO TURN SELF IN BED. CALL LIGHT IS IN REACH, BED ALARM IS ON.
--- NOTE | 2020-10-19 05:13 | NUR ---
SHIFT SUMMARY: AOX1, COOPERATIVE. PAIN IN RIGHT HIP 01/05. VS WNL, ABLE TO SELF ADJUST IN BED. 1 ASSIST TO BSC. MEDS GIVEN IN APPLESAUCE. SLEPT T/O NIGHT. LS CLEAR, NO COUGH OR CONGESTION. REDNESS RESOLVED IN GROIN AND BELLY FOLD. INCONTIENT OF URINE AND STOOL. ATTENDS REMAINED DRY. BED ALARM ACTIVE, CALL LIGHT IN REACH. AWAITING NEW PLACEMENT, POSSIBLE GRANTS PASS ASSISTED LIVING ASSESSMENT SOON.
--- NOTE | 2020-10-19 17:44 | NUR ---
PATIENT IS ALERT AND ORIENTED TO SELF AND FOLLOWING DIRECTIONS. SHE HAS BEEN COOPERATIVE WITH CARE TODAY. SHE SPENDS TIME UP IN THE RECLINER. SHE IS A 1[place] TRANSFER [place] [facility] [place]IP PAIN TREATED PER EMAR. WILL CONTINUE TO MONITOR.
--- NOTE | 2020-10-19 19:50 | NUR ---
ASSUMED CARE. AOX1, HER HEARING HAS IMPROVED ALOT, SHE IS ABLE TO HEAR ME WITH OUT SCREAMING. STATES HER PAIN IS 7/10 DOES NOT REMEMBER TAKING A NORCO. IS UNABLE TO STATE IF IT HELPED HER. SHE IS MOVING THE LEG WELL IN BED. DOES NOT SHOW PAIN WHEN SHE IS DOING IT. LUNG SOUNDS ARE CLEAR, HR REGULAR S1 S2, NO BM TODAY, BTX4. DENIES ANY NEEDS AT THIS TIME. CALL LIGHT IS IN REACH, NOT SURE IF SHE WILL USE IT. WILL CONTINUE TO MONITOR.
--- NOTE | 2020-10-20 05:38 | NUR ---
SHIFT SUMMARY: AOX1, PLEASANTLY CONFUSED. HEARING CONTINUES TO IMPROVE. PAIN IS TOLERABLE WITH NORCO. ABLE TO TURN SELF IN BED. VS WNL, AFEBRILE. DENIES ANY NEEDS OR COMPLAINTS. SLEPT THROUGHOUT THE NIGHT. CALL LIGHT IN REACH, BED ALARM ON.
--- NOTE | 2020-10-20 17:58 | NUR ---
SHIFT SUMMARY PT SLEEPING MOST OF DAY. UP IN CHAIR FOR LUNCH. AMBULATED IN HALLWAY WITH P.T. USING FWW. NO CHANGE TODAY.
--- NOTE | 2020-10-20 21:32 | NUR ---
AWAKE IN BED. SOMEWHAT STOIC UNTIL WE DISCUSSED SOHA. THEN SHE SMILED. DENIED LOSS OF FEELING. DISCUSSED CORRECT PLACEMENT OF RIGHT LEG, PILLOW PLACED BETWEEN LEGS. HB ELEVATED. CALL LIGHT IN REACH. TOLERATED HS MEDS WELL. ILL CONT TO MONITOR
--- NOTE | 2020-10-21 04:24 | NUR ---
SHIFT SUMMARY HAS BEEN RESTING QUIETLY WITH FEW INTERRUPTIONS HIS SHIFT. UP TO BEDSIDE COMMODE A FEW TIMES WITH ASSIST TO VOID, AND WATCHING TV ON OCCASION DURING ROUNDING. CALL LIGHT IN REACH.
--- NOTE | 2020-10-21 16:32 | NUR ---
SUMMARY PT RESTING QUIETLY IN BED, PT HAS BEEN UP IN THE CHAIR FOR MEALS, CAN BE RESISTANT TO CARE, HAD A BED BATH TODAY, NO ACUTE CHANGES, VSS, WILL CONT TO MONITOR
--- NOTE | 2020-10-21 19:08 | NUR ---
AWAKE. RESTING IN BED. DENIES PAIN AND SMILES WHEN NURSE INTRODUCES SELF. CALL LIGHT IN REACH
--- NOTE | 2020-10-22 04:36 | NUR ---
SHIFT SUMMARY HAS BEEN RESTING QUIETLY WITH FEW INTERRUPTIONS. CALL LIGHT IN REACH. NO NOTED ACUTE DISTRESS.
--- NOTE | 2020-10-22 15:50 | NUR ---
Patient is alert and oriented to self and place. Cooperative with staff. Vitals remain WNL and stable. No acute changes to report on at this time. Awaiting placement for disharge. Will continue to monitor and provide care as needed.
--- NOTE | 2020-10-23 03:48 | NUR ---
ENAMEL PULVERIZER SUMMARY PT A&O TO SELF AND PLACE. PLEASANT AND COOPERATIVE TO CARE. PT ATTEMPTED TO SELF TRANSFER THIS SHIFT, REDIRECTED SAFELY BACK TO BED. PT MEDICATED FOR PAIN PER EMAR. NO C/O CP, SOB, OR N&V. PT CALM AND RESTED IN BED AT THIS TIME. BED AT LOWEST POSITION, ALARM ON. CALL LIGHT WITHIN REACH.
--- NOTE | 2020-10-23 15:19 | NUR ---
PATIENT HAS NO ACUTE CHANGES TO REPORT OF AT THIS TIME. CALLS APPROPRIATELY FOR STAFF ASSIST NEEDED. WILL CONTINUE TO MONITOR AND PROVIDE CARE NEEDED. CALL LIGHT WITHIN REACH.
--- NOTE | 2020-10-24 04:06 | NUR ---
LADLE REPAIRER SUMMARY PT A&O TO SELF AND PLACE, ABLE TO MAKE NEEDS KNOWN. PLEASANT AND COOPERATIVE TO CARE. PT ATTEMPTED TO SELF TRANSFER WITHOUT ASSISTANCE FROM STAFF EARLIER IN THE SHIFT. PT REDIRECTED SAFELY BACK TO BED. PT MEDICATED FOR R HIP PAIN X1 PER EMAR. DENIES CP, SOB, OR N&V. PT CALM AND RESTED IN BED T/O SHIFT. BED AT LOWEST POSITION, ALARM ON. CALL LIGHT WITHIN REACH.
--- NOTE | 2020-10-24 16:08 | NUR ---
PATIENT IS PLEASANTLY CONFUSED. VITALS STABLE. NO ACUTE CHANGES TO REPORT OF AT THIS TIME. PATIENT SITTING UPRIGHT IN THE BEDSIDE RECLINER AT THIS TIME. CALL LIGHT WITHIN REACH. WILL CONTINUE TO MONITOR AND PROVIDE CARE NEEDED.
--- NOTE | 2020-10-25 04:27 | NUR ---
MEN'S LEATHER DRESS BELT MAKER SUMMARY PT A&O TO SELF AND PLACE, PLEASANT AND COOPERATIVE TO CARE. NO EPISODES OF SELF TRANSFERRING THIS SHIFT. PT MEDICATED FOR R HIP PAIN X1 PER EMAR. NO C/O CP. SOB, OR N&V. PT CALM AND RESTED IN BED T/O SHIFT. BED AT LOWEST POSITION, CALL LIGHT WITHIN REACH.
--- NOTE | 2020-10-25 16:53 | NUR ---
SHIFT SUMMARY- PT A/O TO SELF ONLY. PT MEDICATED X1 WITH NORCO FOR RIGHT HIP PAIN. PT UP TO BATHROOM AND RECLINER WITH 1 ASSIST, PT NEEDS EXTRA ENOURAGEMENT TO AGREE TO GET OUT OF BED OR TO BE REPOSITIONED. LS CLEAR, ON RA. PT INCONT OF URINE T/O THE DAY. VERY POOR APETITE TODAY, ATTEMPTED TO FEED PT AND SHE CONT TO REFUSE, SPOKE TO PT WHY SHE IS NOT EATING AND REPORTED SHE DOES NOT LIKE THE FOOD HERE, ATTEMPTED TO FIND SOMETHING PT WOULD WANT TO EAT BUT PT WOULD NOT ANSWER. PT CONT TO AWAIT PLACEMENT AT THIS TIME.
--- NOTE | 2020-10-26 05:41 | NUR ---
SHIFT SUMMARY- PT. CONFUSED, NO COMPLAINTS OF PAIN LAST NIGHT. ASLEEP T/O THE NIGHT, NO APPARENT DISTRESS NOTED. VSS. CALL LIGHT WITHIN REACH, SIDE RAILS UPX2, AND BED ALARM ON. WILL CONT TO MONITOR.
--- NOTE | 2020-10-26 16:40 | NUR ---
SHIFT SUMMARY- PT A/OX SELF ONLY. PT IRRITABLE AT TIMES AND NEEDS ENCOURAGEMENT TO GET OUT OF BED. PT MEDICATED X1 WITH NORCO FOR RIGHT HIP PAIN. LS CLEAR, ON RA. PT NOTED TO EAT A LITTLE BETTER TODAY. UP WITH 1 ASSIST AND FWW TO BATHROOM, PT INCONT/CONT. PT AWAITING PLACEMENT AT THIS TIME.
--- NOTE | 2020-10-27 04:48 | NUR ---
SHIFT SUMMARY: PT IS ALERT AND ORIENTED X 2. PT IS CALM AND COOPERATIVE WITH CARE. PT DID NOT USE HER CALL LIGHT OVERNIGHT, UP WITH ONE ASSIST AND FWW. PT TOOK MEDS WHOLE WITH VANILLA PUDDING WITHOUT INCIDENT. PT DENIES PAIN, NAUSEA, VOMITING, AND SOB. PT SLEPT MUCH OF THE NIGHT WHEN NOT DISTURBED. BED IN LOW POSITION, CALL LIGHT WITHIN REACH. WILL CONTINUE TO MONITOR.
--- NOTE | 2020-10-27 08:45 | NUR ---
PT PLEASNTLY CONFUSED. STATES PAIN IN RT HIP. SINCE SURG. ABLE TO TELL ME NAME AND . FOLLOWS DIRECTIONS IF BASIC. H/R REG, NO MURMER NOTED. NO TELE. LUNGS CLEAR, RESP EASY, UNLABORED. ON R./A. DR SIMPSON HOLDING BP MEDS R/T BP PER HALLWAY DISCUSSION. BT X4 LAST BM NOT KNOWN BY PT. VOIDS INCONT, IN ATTENDS, CDI AT THIS TIME. BED IN LOW POSITION, CALL LITE IN REACH, BED ALARM ON FOR SAFETY
--- NOTE | 2020-10-27 16:48 | NUR ---
PT PLEASANT TODAY. MED FOR PAIN THIS AM. DID NAP IN CHAIR SOME THIS AFT. BACK TO BED 1 ASST. CONTINUE TO REMIND TO NOT CROSS LEGS. PRESENTLY WATCHING TV IN BED. NO NEW CONCERNS TODAY. BED IN LOW POSITION, CALL LITE IN REACH, BED ALARM ON FOR SAFETY
--- NOTE | 2020-10-28 05:04 | NUR ---
SUMMARY NO NEW ISSUES NOTED. PT HAS BEEN RESTING AND WATCHING TV. PT CURRENTLY SLEEPING AND BREATHING EASY. CALL LIGHT IN REACH AND BED ALARM ON.
--- NOTE | 2020-10-28 18:40 | NUR ---
Shift Summary A/O to self. 1P c FWW. [place] for assistance. C/O 04/07 R pain but did not want anything for this. Appetite is satisfactory. Denies nausea, vomiting, diarrhea. No acute changes, awaiting placement.
--- NOTE | 2020-10-29 06:01 | NUR ---
SHIFT SUMMARY AOX1-SELF ONLY. UNAWARE, DATE, PLACE. ABLE TO FOLLOW DIRECTIONS & ANSWER SIMPLE YES/NO QUESTIONS. VSS. REPORTS 7/10 PAIN IN R HIP & GRIMACES, MOANS c AMBULATION OR MOVEMENT OF R HIP. GAVE NORCO 2X PER ORDERS, PT STATES MILD TO NO RELIEF, YET HAS NO NONVERBAL S/S OF PAIN AFTER MEDICATION. DENIES N/V OR DYSPNEA. 2 ASSIST TO BSC THIS AM FOR PT VERY WEAK. CONT OF URINE. CALL LIGHT IN REACH & BED ALARM ON FOR SAFETY. PT PLEASENT & COOPERATIVE c CARE. WILL MONITOR.
--- NOTE | 2020-10-29 18:28 | NUR ---
SHIFT SUMMARY PT A/O X2; PLEASANT AND COOPERATIVE WITH CARE. PT HAS BEEN UP IN THE CHAIR FOR THE MAJORITY OF THE SHIFT. THE PT DOES NOT C/O OF PT BUT OF SOME TENDERNESS IN HER LEGS AND HIP. VSS.
--- NOTE | 2020-10-30 04:00 | NUR ---
SHIFT SUMMARY PT PLEASANTLY CONFUSED AND USES BATHROOM WITH 1P ASSIST WITH GAITBELT AND FWW. PT C/O HIP PAIN AT THE BEGINNING OF THE SHIFT; MEDICATED PER EMAR. NO OTHER ACUTE CHANGES ON THIS SHIFT. BED IS IN THE LOWEST POSITION AND CALL LIGHT WITHIN REACH
--- NOTE | 2020-10-30 18:23 | NUR ---
SHIFT SUMMARY PT A/O X2; PLEASANT AND COOPERATIVE WITH CARE. PT HAS BEEN UP IN THE CHAIR FOR THE MAJORITY OF THE SHIFT. C/O PAIN X2 THIS SHIFT AND TREATED PER EMR. VERY [place]. VSS; CURRENTLY RESTING WITH HER CALL LIGHT IN REACH.
--- NOTE | 2020-10-30 21:57 | NUR ---
ASSISTED TO BED FROM BEDSIDE CHAIR. TOLERATED HS MEDS WELL. SMILED. HOB ELEVATED FOR COMFORT. CALL LIGHT IN REACH.
--- NOTE | 2020-10-31 05:17 | NUR ---
SHIFT SUMMARY HAS BEEN RESTING QUIETLY WITH FEW INTERRUPTIONS. UP TO BR WITH ASSIST ONCE OR TWICE WITHOUT INCIDENT. CALL LIGHT IN REACH. NO COMPLAINTS VOICED
--- NOTE | 2020-10-31 18:32 | NUR ---
PATIENT IS ALERT AND ORIENTED x 1-2. SHE COMPLAINS OF PAIN IN HER RIGHT HIP, TREATED PER EMAR. PATIENT SAT UP IN THE RECLINER MOST OF THE DAY. VSS. CALLS APPROPRIATELY TO GO TO THE BATHROOM. WILL CONTINUE TO MONITOR
--- NOTE | 2020-10-31 21:29 | NUR ---
WAS ASSISTED TO BED FROM BEDSIDE CHAIR EARLIER. TOLERATED HS MEDS WELL. INTERACTED WITH NURSE AND SMILED. CALL LIGHT IN REACH. WATCHING TV. RAILS UP X 2. BED ALARM ON
--- NOTE | 2020-11-01 04:28 | NUR ---
SHIFT SUMMARY HAS BEEN RESETING QUIETLY SINCE HAVING BEEN ASSISTED TO BED AT , WITH FEW INTERRUPTIONS. INCONT ONCE, CHANGED. CURRENTLY RESTING QUIETLY WITHOUT NOTED ACUTE DISTRESS. CALL LIGHT IN REACH.
--- NOTE | 2020-11-01 17:36 | NUR ---
PATIENT IS ALERT AND ORIENTED TO SELF, AND FOLLOWING DIRECTIONS. SHE SPENT A COUPLE HOURS UP IN THE RECLINER TODAY. COMPLAINS OF PAIN IN HER RIGHT HIP, TREATED PER EMAR. DODIE, A WATER ANALYST FROM [facility] CALLED REGARDING THE PATIENT AND ASKED WHEN SHE WILL BE READY TO DISCHARGE. DODIE WAS GIVEN THE DIRECTOR [employer]'S NUMBER WHO IS ASSIGNED TO THE PATIENT TODAY. WILL CONTINUE TO MONITOR.
--- NOTE | 2020-11-01 19:11 | NUR ---
RESTING QUIETLY, CALL LIGHT IN REACH
--- NOTE | 2020-11-02 06:34 | NUR ---
SHIFT SUMMARY RESTING QUIETLY WITH OCCSIONAL INTERRUPTIONS. CHANGED FOR INCONT AND AWAAKE FOR MEDS. PAIN MED X 1 THIS SHIFT FOR RIGHT HIP PAIN. SEE MAR FOR DETAILS. CALL LIGHT IN REACH
--- NOTE | 2020-11-02 17:24 | NUR ---
PT AOX1 AND COOPERATIVE OF CARE. PT HAS BEEN IN BED ALL DAY AND WAS RESTING. PT HAS BEEN COOPERATIVE, BUT TIRED TODAY FOR MOST OF THE DAY. LATER THE AFTERNOON SHE WOKE UP MORE AND THEN WANTED TO WALK TO LOOK FOR HER PHONE. PT WAS REDIRECTED TO BED AND HELPED TO CALL DAUGHTER'S NUMBER ON BOARD. PT DOESN'T CALL EVERY TIME WHEN SHE NEEDS SOMEONE. BED ALARM IS IN PLACE WILL CONTINUE TO MONITOR.
--- NOTE | 2020-11-02 19:19 | NUR ---
AWAKENS WHEN NURSE ENTERS ROM. TV ON. PT SMILES. NO C/O VOICED. CALL LIGHT IN REACH
--- NOTE | 2020-11-03 06:19 | NUR ---
SHIFT SUMMARY HAS BEEN RESING QUIETLY WITH FEW INTERRUPTIONS THS SHIFT. CALL LIGHT IN REACH
--- NOTE | 2020-11-03 17:15 | NUR ---
PT AOX1 AND COOPERATIVE OF CARE. PT DOES NOT USE CALL LIGHT AND IS IMPULSIVE NEEDING BED AND CHAIR ALARM. PT HAS HAD MULTIPLE STOOLS TODAY WITH THE LAST COUPLE BEING LOOSE. PT HAS BEEN UP IN CHAIR MORE TODAY AND IS DOING WELL. PT HAS BEEN DOING WELL WITH JUST HER PAIN PATCH. CALL LIGHT IS WITHIN REACH AND CHAIR ALARM IN PLACE WILL CONTINUE TO MONITOR.
--- NOTE | 2020-11-04 04:14 | NUR ---
Elisha slept well after large HS snack. Alert to place, self and coopertive with care. Right anterior hip incision clean dry and well approximated. Minimal pain which resolved with heat and tylenol. Turns well in bed with minimal assist. Unable to locate lido patch at 1930. Likely rolled up and lost in sheets.
--- NOTE | 2020-11-04 12:59 | NUR ---
SHE IS RESTLESS RIGHT NOW. SHE IS WALKING IN THE COLEY WITH A WALKER, GAITBELT AND 1 ASSIST. SHE IS CONFUSED BUT COOPERATIVE. SHE SLEPT A LOT THIS MORNING AFTER BREAKFAST AND A PAIN PILL FOR THE PAIN IN HER R HIP AND LEG. SHE HAD GOOD RELIEF. HER INCISION IS NEARLY HEALED AND LOOKS PERFECT.
--- NOTE | 2020-11-04 17:46 | NUR ---
SHE IS UP IN THE CHAIR AGAIN FOR DINNER NOW. SHE CONTINUES TO BE PLEASANTLY CONFUSED. SHE HAS SET OFF HER ALARMS A FEW TIMES TODAY WHEN SHE WAS A LITTLE RESTLESS. SHE WALKED IN THE COLEY WITH ASSIST AND A WALKER. SHE RECEIVED PAIN MEDICINE AT BREAKFAST AND TYLENOL AT DINNER. HER R HIP INCISION FROM Aug IS HEALED WITH JUST A FRESH SCAR. NO SIGNS OF INFECTION. WILL GIVE HER TYLENOL WITH DINNER FOR SOME DISCOMFORT.
--- NOTE | 2020-11-05 05:37 | NUR ---
SLEPT WELL. MEDICATED ONCE FOR PAIN BEFORE HS. VOIDING CLEAR YELLOW URINE IN TOILET. NO OTHER COMPLAINTS OF PAIN OR DISCOMFORT.
--- NOTE | 2020-11-05 10:46 | NUR ---
SURGEON VISIT AND ORAL BURTON HIS PA WERE JUST HERE. THEY EXAMINED HER R GROIN WOUND, CLEANED IT AND COVER IT WITH AN ABD AND TRANSPORE TAPE. I HAD ALSO CLEANED IT EARLIER AND COVERED IT WITH AN ABD BUT JUST LEFT IT TUCKED UNDER HER ATTENDS FASTENERS. HE WOULD LIKE THE DRESSING CHANGED PRN SOILING. SHE SAT UP FOR BREAKFAST BUT DID NOT EAT WELL. SHE WAS A LITTLE SLEEPY AND COULDN'T STAY FOCUSED. WILL ASSIST HER MORE AT LUNCH IF SHE HAS THE SAME CHALLENGES.
--- NOTE | 2020-11-05 12:05 | NUR ---
SHE HAS BEEN SETTING OFF HER ALARM OFF AND ON THIS MORNING, JUST RESTLESS. SHE HAS BEEN MEDICATED FOR PAIN X1. SHE ATE BREAKFAST WHILE UP IN THE CHAIR. SHE HAS BEEN IN THE CHAIR MORE THAN THE BED SO FAR TODAY. SHE AMBULATES WELL WITH SBA.
--- NOTE | 2020-11-05 17:50 | NUR ---
SHE WAS JUST HELPED UP TO THE CHAIR FOR DINNER. SHE HAS BEEN UP FOR EACH MEAL. SHE HAS ALSO WALKED AROUND THE ROOM WITH WALKER AND SBA. HER R HIP INCISION IS HEALED/WNL. SHE WAS AGITATED THIS AM BUT NOT AT ALL THIS AFTERNOON. SHE RECEIVED A PAIN PILL ONCE THIS MORNING. NO NEW CHANGES.
--- NOTE | 2020-11-05 19:10 | NUR ---
ASSUMED CARE RECEIVED REPORT FROM LIN LUCAS. PT RESTING COMFORTABLY, NO ACUTE NEEDS OR DISTRESS NOTED AT THIS TIME. RESPS E/U. CALL LIGHT, POSSESSIONS IN REACH, BED ALARM ON. CONTINUE TO MONITOR.
--- NOTE | 2020-11-06 04:48 | NUR ---
SHIFT SUMMARY PT SITTING IN RECLINER, ASLEEP. NO S/S ACUTE DISTRESS NOTED, WAS MONITORED EVERY 1-2 HOURS WITH NEEDS MET. VS REVIEWED, WNL. RESPS E/U. PAIN MANAGED WITH MEDS PER EMAR, WITH EFFECTIVE RELIEF. AMBULATED TO BATHROOM WITH ASSISTANCE, TOLERATED WELL. CALLED APPROPRIATELY TO MAKE NEEDS KNOWN. NO ACUTE NEEDS ASSESSED AT THIS TIME. CALL LIGHT, POSSESSIONS IN REACH, CHAIR ALARM ON. WILL CONTINUE TO MONITOR UNTIL REPORT GIVEN TO DAY RN.
--- NOTE | 2020-11-06 17:25 | NUR ---
SHIFT SUMMARY PT AWAKE DURING SHIFT REPORT, SITTING IN RECLINER AT BS. PER REPORT, PT SLEPT IN RECLINER LAST NIGHT, NOT WANTING TO GO TO BED. PT IS A LITTLE [place], BUT HAS BEEN PLEASANT AND CO-OP. PT AMBULATED IN COLEY SEVERAL TIMES AND SAT IN COLEY LOOKING OUT WATER FALL WINDOW FOR QUITE A WHILE, A COUPLE OF DIFFERENT TIMES. PT BACK IN AT THIS TIME, SITTING IN RECLINER WAITING FOR DINNER. LIDOCAINE PATCH PLACED TO L HIP FOR RECENT SX, WHICH IS HEALING WELL. HX OF ALZ AND ANEMIA, WAITING PLACEMENT.
--- NOTE | 2020-11-06 19:10 | NUR ---
ASSUMED CARE RECEIVED REPORT FROM LIN GORDON. PT SITTING UP IN BED, ATTEMPTING TO EAT DINNER. NO ACUTE NEEDS OR DISTRESS NOTED AT THIS TIME. CALL LIGHT, POSSESSIONS IN REACH, BED IN LOW POSITION WITH ALARMS ON. TM.
--- NOTE | 2020-11-07 05:27 | NUR ---
SHIFT SUMMARY PT ASLEEP, NO ACUTE NEEDS OR DISTRESS NOTED. WAS MONITORED EVERY 1-2 HOURS WITH NEEDS MET. VS REVIEWED, WNL. PT DENIES PAIN AT THIS TIME. UP TO BATHROOM WITH 1 ASSIST AND FWW, TOLERATED WELL. REMAINS CONFUSED, CALLS OUT FOR HELP AT TIMES; EASILY RE-DIRECTABLE. DENIES NEEDS AT THIS TIME. CALL LIGHT, POSSESSIONS IN REACH, BED IN LOW POSITION WITH ALARMS ON. CONTINUE TO MONITOR UNTIL REPORT GIVEN TO DAY RN.
--- NOTE | 2020-11-07 18:12 | NUR ---
SHIFT SUMMARY PT HAS BEEN MORE TIRED TODAY, AND NOT WANTING TO GO FOR A WALK. UP TO CHAIR FOR MEALS, BUT BACK TO BED AFTER LUNCH UNTIL TIME FOR DINNER. PT HAS BEEN PLEASANT, BUT IS ALSO FEARFUL OF NEW STAFF OR MEDICATIONS. PT IS MORE COMFORTABLE WITH CONSISTENT CARE. NO C/O PAIN TODAY. DECLINED LIDOCAINE PATCH TO HIP TODAY; "DON'T NEED IT". CHAIR AND BED ALARM ON FOR SAFETY. CALL LT IN REACH.
--- NOTE | 2020-11-07 19:05 | NUR ---
ASSUMED CARE RECEIVED REPORT FROM LIN GORDON. PT LYING IN BED, APPEARS COMFORTABLE. PT ASKING THIS RN IF THEY WERE GONNA BE WITH HER TONIGHT, PROVIDED REASSURANCE. PT RELIEVED. REPORTS RT HIP PAIN, WILL MEDICATE PER EMAR. NO OTHER ACUTE NEEDS ASSESSED AT THIS TIME. CONTINUE TO MONITOR.
--- NOTE | 2020-11-08 04:23 | NUR ---
SHIFT SUMMARY PT ASLEEP, NO ACUTE NEEDS OR DISTRESS NOTED AT THIS TIME. RESPS E/U. NO ACUTE CHANGES IN CONDITION NOTED T/O NIGHT. CALL LIGHT, POSSESSIONS IN REACH, BED IN LOW POSITION WITH ALARMS ON. CONTINUE TO MONITOR UNTIL REPORT GIVEN TO DAY RN.
--- NOTE | 2020-11-08 19:16 | NUR ---
SHIFT SUMMARY PT IS AO TO SELF. PT C/O PAIN IN THE RIGHT HIP. PT MEDICATED FOR PAIN X1. PT WORKED WITH PT/OT TODAY.PT IS ONE PERSON ASSIST WITH TRANSFERS. PLACEMENT IS NEEDED FOR PT UPPON DC. PT IS IN BED, CALL LIGHT IN REACH, BED IN LOW POSITION.
--- NOTE | 2020-11-09 04:07 | NUR ---
SHIFT SUMMARY ASSUMED CARE OF PT AT 1900. PT IS A/OX3. HEART SOUNDS REGULAR, LUNG SOUNDS CLEAR. PT C/O PAIN T/O THE NIGHT IN HER R HIP. MEDICATED PER EMAR. PT WAS CONTIENT T/O THE NIGHT. PT SLEPT T/O THE NIGHT. CALL LIGHT IN REACH, BED IN LOWEST POSTION.
--- NOTE | 2020-11-09 17:40 | NUR ---
SHIFT SUMMARY PATIENT MEDICATED X1 FOR PAIN THIS SHIFT. DENIES NAUSEA AND SHORTNESS OF BREATH. UP SBA TO CHAIR/BSC. EATING AND DRINKING WELL. PLEASANT AND COOPERATIVE WITH CARE.
--- NOTE | 2020-11-10 06:41 | NUR ---
SHIFT SUMMARY PT IS A 84 Y/O FEMALE, ADMITTED FOR HIP FX, CURRENTLY AWAITING PLACEMENT. SHE IS A&O X SELF. CONTINENT/INCONTINENT, 1PA WITH THE FWW TO THE BSC. NO C/O PAIN, NAUSEA OR SOB. VITAL SIGNS STABLE. PT SLEPT WELL THROUGH THE NIGHT. NO ACUTE CHANGES IN PT CONDITION NOTED. WILL CONTINUE TO MONITOR AND TREAT PER EMAR UNTIL HAND OFF TO DAY SHIFT RN.
--- NOTE | 2020-11-10 18:23 | NUR ---
SHIFT SUMMARY PATIENT MEDICATED X1 FOR PAIN, DENIES NAUSEA AND SHORTNESS OF BREATH. UP SBA W/FWW. WALKED IN HALLWAY WITH STAFF TODAY. EATING IN DRINKING WELL. PLEASANT AND COOPERATIVE CARE.
--- NOTE | 2020-11-11 00:51 | NUR ---
11/10/201944 PT RESTING IN BED WITH BOTH LEGS CURLED UP BESIDE HER CHEST; PT DECLINES TO STRAIGHTEN LEGS SHE FEELS COMFORTABLE LIKE THIS AT MOMENT; ALERT AND ORIENTED X 2. 11/11/202199 PT RESTING COMFORTABLY IN BED; CHEERFUL.
--- NOTE | 2020-11-11 03:26 | NUR ---
SHIFT SUMMARY: 84 Y/O FEMALE RESTED COMFORTABLY ALL SHIFT; PTS RIGHT HIP INCISION 100% HEALED; PT WAS NOTED TO NOT KEEP RIGHT LEG STRAIGHT AND TENDED TO CROSS LEGS AND ALSO CURL UP INTO POSITION WHILE SLEEPING IN BED OR WHILE SITTING UP CHAIR; DENIES PAIN; ALERT AND ORIENTED X 2, ABLE TO FOLLOW SIMPLE VERBAL COMMANDS; BED ALARM APPLIED FOR SAFETY, BED LOW POSITION WITH CALL LIGHT AT SIDE.
--- NOTE | 2020-11-11 17:26 | NUR ---
SHIFT SUMMARY PT CONFUSED, BUT COOPERATIVE T/O MOST OF THE SHIFT. PT IMPULSIVE AND GETTING OUT OF CHAIR FREQUENTLY THIS EVENING. RE-ORIENTED NEEDED. PT UP IN CHAIR FOR MOST THE SHIFT. PRN PAIN MEDS GIVEN ONCE THIS SHIFT. VS REVIEWED. NO OTHER ACUTE CHANGES IN ASSESSMENT AT THIS TIME. PT UP IN RECLINER AWAITING DINNER.
--- NOTE | 2020-11-11 20:56 | NUR ---
2000 PT RESTING COMFORTABLY IN BED; CHEERFUL; ABLE TO FOLLOW SIMPLE VERBAL COMMANDS.
--- NOTE | 2020-11-12 03:22 | NUR ---
SHIFT SUMMARY: 84 Y/O FEMALE RESTED COMFORTABLY IN BED ALL SHIFT; PT DENIES NAUSEA; PT C/O RIGHT HIP PAIN RATED 7/10 WITH NORCO 5/325MG PO GIVEN WITH RELIEF FELT; PTS RIGHT HIP INCISION WELL APPROXIMATED AND 100% HEALED; PT TENDS TO SLEEP POSITION AT NIGHT AND ALSO PRESENTED IN SAME POSITION WHILE SITTING LOUNGE CHAIR AT BEGINNING OF SHIFT; PT ALERT AND ORIENTED X 2 AND ABLE TO FOLLOW SIMPLE VERBAL COMMANDS; PT PENDING PLACEMENT TO SNF; BED ALARM APPLIED FOR SAFETY, BED LOW POSITION WITH CALL LIGHT AT SIDE.
--- NOTE | 2020-11-12 17:09 | NUR ---
SHIFT SUMMARY PT UP IN CHAIR FOR MEALS. TOLERATING WELL. MEDICATED FOR PAIN ONCE SO FAR THIS SHIFT. NO OTHER ACUTE CHANGES IN ASSESSMENT AT THIS TIME. VS REVIEWED. DISCHARGE PLANNING WORKING ON A PLAN FOR PLACEMENT.
--- NOTE | 2020-11-12 21:09 | NUR ---
1999 84 Y/O FEMALE RESTING BED WITH LEGS STRETCHED OUT; BED ALARM APPLIED FOR SAFETY; ALERT AND ORIENTED X 2.
--- NOTE | 2020-11-13 03:43 | NUR ---
SHIFT SUMMARY: 84 Y/O FEMALE RESTED COMFORTABLY ALL SHIFT; PT C/O RIGHT HIP PAIN RATED 7/10 WITH NORCO 5/325MG PO X 1 GIVE WITH RELIEF FELT; PT ALERT AND ORIENTED X 2, ABLE TO FOLLOW SIMPLE VERBAL COMMANDS; PT AWAITING PLACEMENT TO SNF; BED ALARM APPLIED FOR SAFETY, BED LOW POSITION WITH CALL LIGHT AT SIDE.
--- NOTE | 2020-11-13 19:00 | NUR ---
SHIFT SUMMARY PT UP IN CHAIR WITH 1 PERSON ASSIST USING GAIT BELT. MEDICATED FOR PAIN THIS MORNING. WAS IN CHAIR TILL AFTERNOON. SLEEPING ON AND OFF.
--- NOTE | 2020-11-14 04:19 | NUR ---
PATIENT PLEASANTLY CONFUSED. COOPERATIVE WITH STAFF. SLEPT THE MAJORITY OF THIS SHIFT, WAKING TO USE THE BATHROOM. VITALS HAVE BEEN STABLE. NO COMPLAINTS OF PAIN OR DISCOMFORT NOTED OR REPORTED. NO ACUTE CHANGES NOTED THIS SHIFT. CALL LIGHT IN REACH.
--- NOTE | 2020-11-14 17:43 | NUR ---
SHIFT SUMMARY UP IN CHAIR FOR MEALS. NAPPED THIS AFTERNOON. GETTING UP AT TIMES ON HER OWN. WALKED IN HALLWAY WITH 1 PERSON ASSIST WITH GAIT BELT. SHOWER TAKEN AND TOLERATED WITH NO PROBLEM.
--- NOTE | 2020-11-15 03:33 | NUR ---
PATIENT IS PLEASANTLY CONFUSED. COOPERATES WITH STAFF. VITALS STABLE. NO ACUTE CHANGES NOTED OR REPORTED THIS SHIFT. PATIENT ASLEEP IN BED AT THIS TIME. CALL LIGHT WITHIN REACH.
--- NOTE | 2020-11-15 19:17 | NUR ---
SHIFT SUMMARY: NO ACUTE CHANGES TO REPORT THIS SHIFT. PT A&O X2; CALM AND COOPERATIVE WITH CARE. MEDICATED FOR PAIN PER EMAR. AWAITING PLACEMENT. REPROT GIVEN TO ONCOMING RN.
--- NOTE | 2020-11-15 21:25 | NUR ---
ASSUMED CARE. LEROY IS AOX1 BUT DOES NOT KNOW , OR ANY OTHER ORIENTATION QUESTIONS. FOLLOWS DIRECTION WELL, PLEASANT AND COOPERATIVE. RATES PAIN AT 7/20. ADMINISTERED NORCO WITH PM MEDS. ATTENDS DRY. OFFERED WATER. DENIES ANY OTHER CONCERNS OR NEEDS. CALL LIGHT IS IN REACH.
--- NOTE | 2020-11-16 05:18 | NUR ---
SHIFT SUMMARY: AOX1, PLEASANT AND COOPERATIVE. VS WNL. PAIN MANAGED WITH NORCO. MOVES SELF IN BED. SLEPT WELL T/O THE NIGHT, NO ACUTE CHANGES OR CONCERNS TO NOTE. CALL LIGHT HAS REMAINED IN REACH. STILL AWAITING PLACEMENT.
--- NOTE | 2020-11-16 06:21 | NUR ---
BLADDER SCAN SHOWED 466, NO WET ATTENDS THIS SHIFT. ASSISTED PATIENT UP TO BATHROOM, SHE IS CURRENTLY SITTING ON THE TOILET. WILL RECORD AMOUNT VOIDED.
--- NOTE | 2020-11-16 19:05 | NUR ---
SHIFT SUMMARY: NO ACUTE CHANGES TO REPORT THIS SHIFT. PT ALERT; ORIENTED TO SELF & PLACE; CALM AND COOPERATIVE WITH CARE. MEDICATED FOR R HIP PAIN PER EMAR; LIDOCAINE TOP IN PLACE. AWAITING PLACEMENT. REPORT GIVEN TO ONCOMING RN.
--- NOTE | 2020-11-16 19:20 | NUR ---
ASSUMED CARE. LEROY HAD NO ACUTE CHANGES TODAY. DOES REPORT SOME DISCOMFORT IN THE RIGHT LEG. GOT UP AND WALKED AROUND IN THE ROOM WITH JUST HOLDING MY HAND. WATERED HER PLANT WITH HER, AND THEN SHE SAT DOWN IN THE CHAIR. ATTENDS WERE DRY, DENIED NEED TO USE BATHROOM. ENCOURAGE FLUID INTAKE, PERFERS ICE WATER DOES NOT LIKE IT TO GET WARM. CALL LIGHT IS IN REACH, CHAIR ALARM IS ON.
--- NOTE | 2020-11-17 05:49 | NUR ---
SHIFT SUMMARY: NO CHANGE IN MENTAL STATUS, REMAINS CONFUSED BUT FOLLOWS DIRECTION. ONLY COMPLAINT WAS PAIN IN RIGHT HIP. MEDICATED WITH OXY PRIOR TO BED. SHE DID WANT MELATONIN BUT BY THE TIME I GOT BACK TO THE ROOM SHE WAS ALREADY ASLEEP. SHE SLEPT WELL NEVER WAKING UP WHEN CHECKING ON HER EXCEPT WHEN WE WOKE HER UP. VS WNL. STILL AWAITING PLACEMENT. CALL LIGHT IS IN REACH, BED ALARM IS ON.
--- NOTE | 2020-11-17 16:50 | NUR ---
SUMMARY PT IS A/O X2, SOMEWHAT FORGETFUL, SHE DOES NOT USE CALL SYSTEM, YELLS OUT WHEN SHE NEEDS ASSIST OR UP TO BR. SHE STATE CONTINUING PAIN R HIP, GAVE TYLENOL & NORCO TODAY FOR PAIN RELIEF, SHE HAS LIDODERM PATCH R HIP THIS AM. SHE IS ABLE TO STAND, BR WT w GB TO CHAIR OR BR. SHE IS GENERALLY PLEASANT, COOPERATIVE. VSS/AFEBRILE.
--- NOTE | 2020-11-18 04:34 | NUR ---
SHIFT SUMMARY- PT. A&OX2, WITH CONFUSION. PT. SLEPT WELL MOST OF THE NIGHT W/O COMPLAINTS OF PAIN OR DISCOMFORT. PT. CAN BE IMPULSIVE AT TIME, BED ALARM ON. PT. WAS UP LAST NIGHT W/ASSISTANCE TO THE BATHROOM, TOLERATED WELL. HAD BM, CONT/INCONT OF URINE, ATTENDS IN PLACE. REQUESTED SNACKS DURING THE NIGHT, HAS GOOD APPETITE. DENIED ANY OTHER NEEDS THIS SHIFT, VSS. CALL LIGHT WITHIN REACH, SIDE RAILS UPX2, AND BED ALARM ON. WILL CONT TO MONITOR.
--- NOTE | 2020-11-18 11:20 | NUR ---
AM ASSESSMENT PT IS A/O X2, [place]/FORGETFUL. GENERALLY PLEASANT AFFECT. STATE CONTINUING R HIP PAIN, PRN NORCO GIVEN. LIGHT BED BATH GIVEN PT ALLOWS, SOMEWHAT RESISTANT. PT UP FOR ZOOM MTG w ASSISTED LIVING FACILITY, FACILITATED BY TECHNICAL OPERATIONS SPECIALIST. RAIMUNDOHER AMBULATE PT IN ROOM/COLEY DURING INTERVIEW.
--- NOTE | 2020-11-18 16:34 | NUR ---
SUMMARY PT IS A/O X2-3, PLEASANT AFFECT. UP SBA TO BR, GAIT STEADY/CAUTIOUS. S/P RHIP FX SURG. NEW SCAR IS HEALED, W/O S/S INFECTION. SHE CONTINUES TO STATE PAIN TO AREA, INCREASES w ACTIVITY. HAVE GIVEN NORCO & TYLENOL FOR PAIN RELIEF. SHE HAD INTERVIEW TODAY w ASSISTED LIVING FACILITY IN [facility] WHERE SHE WILL BE CLOSER TO FAMILY, AWAITING TO HEAR BACK IF ACCEPTED. VSS/AFEBRILE.
--- NOTE | 2020-11-19 04:51 | NUR ---
SHIFT SUMMARY- NO ACUTE EVENTS OVERNIGHT. PT. CONFUSED, CAN BE IMPULSIVE AT TIMES. MEDICATED FOR C/O R HIP PAIN WITH GOOD EFFECT. SLEPT MOST OF THE NIGHT, NO APPARENT DISTRESS NOTED. VSS. CALL LIGHT WITHIN REACH, SIDE RAILS UPX2, AND BED ALARM ON. WILL CONT TO MONITOR.
--- NOTE | 2020-11-19 17:41 | NUR ---
SHIFT SUMMARY PT IS AOX2-3, BUT FORGETS LIMITATIONS. PT VISITED BY NATALIYA TALBOT CENTRIFUGAL STATION OPERATOR TODAY WHO STATES THEY HOPE TO DC PT SOMETIME NEXT WEEK. PT MEDICATED FOR PAIN X1 THIS SHIFT. PT DENIES N/V, SOB. PT AMBULATES WELL WITH ONE PERSON ASSIST. PT WORKED WITH PT/OT. PT IS AWAITING PLACEMENT. PT HAS GOOD APPETITE TODAY. PT IN CHAIR, ALARM ON, CALL LIGHT IN REACH.
--- NOTE | 2020-11-20 03:46 | NUR ---
ORDER RUNNER SUMMARY A/O TO SELF AND FAMILY. APPREHENSIVE BUT COOPERATIVE WITH CARE. DENIES PAIN OR SOB. APPEARED TO SLEEP T/O NIGHT, UP TO BATHROOM WITH 1 ASSIST AND WALKER. VSS, NO ACUTE CHANGES AT THIS TIME. BED IN LOWEST POSIITON, ALARM ON, CALL LIGHT WITHIN REACH. WILL CONTINUE TO MONITOR AND REPORT TO ONCOMING RN.
--- NOTE | 2020-11-20 18:35 | NUR ---
CALLED DR SHAH AND RELAYED THAT PT HAS GOTTEN VERY ANXIOUS OVER THE LAST COUPLE OF HOURS, SETTING OFF HER BED AND CHAIR ALARM EVERY 5 MINUTES. PT IS CONSTANTLY FIXATING AND FEARFUL OF GETTING KICKED OUT. NO PRN MEDICATIONS AVAILAB.E. DR SHAH IS NOT COMFORTABLE PRESCRIBING MORE THAN THE 1 MG PO HALDOL THAT IS A SCHEDULED 2100 MED. WILL CONTINUE TRYING TO REDIRECT/REORIENT
--- NOTE | 2020-11-20 19:09 | NUR ---
SHIFT SUMMARY LEROY WAS PLEASANT AND COOPERATIVE THIS MORNING AND AFTERNOON. AROUND 430/5PM, PT BECAME VERY ANXIOUS AND CONTINUALLY GETTING UP EVERY 5 MINUTES. NO PRN ANTIANXIETY MEDICATION AVAILABLE (SEE PRIOR NOTE). CONTINENT IN BR MOST OF THE SHIFT. GOT PO PAIN MEDS X1 THIS SHIFT. HAD A FEW FORMED BOWEL MOVEMENTS THIS MORNING, NOT LOOSE AT ALL. CALL LIGHT IN REACH, BED ALARM ON, REPORT GIVEN TO NIGHT NURSE
--- NOTE | 2020-11-21 03:42 | NUR ---
FIELD RESEARCH ASSOCIATE SUMMARY A/O TO SELF/FAMILY. UP TO BATHROOM WITH 1 ASSIST AND FWW. DENIES PAIN OR SOB. PLEASANT AND COOPERATIVE. APPEARED TO SLEEP MOST OF THE NIGHT. VSS, NO ACUTE CHANGES AT THIS TIME. AWAITING PLACEMENT. BED IN LOWEST POSITION, ALARM ON, CALL LIGHT WITHIN REACH. WILL CONTINUE TO MONITOR AND REPORT TO ONCOMING RN.
--- NOTE | 2020-11-21 16:32 | NUR ---
PATIENT HAS SEEMED A BIT MORE CONFUSED AND IRRITABLE THIS SHIFT THAN TYPICALLY. SHE WAS UP AND DOWN CONSTANTLY FROM HER BED AND CHAIR AND WALKING IN HER ROOM AND EVEN OUT TO THE CO[place] WAY. SHE WOULD CALL OUT FREQUENTLY FOR STAFF WITHOUT NEEDING OR WANTING ANYTHING IN PARTICULAR. [facility] SHE IS STABLE AND JUST AWAITING PLACEMENT WITHOUT ANY ACUTE CHANGES TO REPORT OF AT THIS TIME. HE VITALS HAVE BEEN STABLE. THE PATIENT IS CURRENTLY LAYING IN HER BED AT THIS TIME. CALL LIGHT WITHIN REACH.
--- NOTE | 2020-11-22 04:19 | NUR ---
SHIFT SUMMARY AOX2-UNAWARE DATE. FOLLOWS SIMPLE DIRECTIONS. IRRITABLE @BEGINNING OF SHIFT & WAS FIXATED ON BED BEING "WET", WHEN INFORMED BEDDING WAS DRY PT REFUSED TO BELIEVE WHAT I WAS SAYING. COOPERATIVE c CARE. REPORTED 7/10 PAIN IN R HIP, MEDICATED 1X c NORCO & PT WAS ABLE TO REST COMFORTABLY T/O NIGHT. DENIES N/V OR DYSPNEA. TOOK MEDS WHOLE IN APPLESAUCE. HAD 1 LOOSE MEDIUM BM. CALL LIGHT IN REACH & BED ALARM ON FOR SAFETY. WILL MONITOR.
--- NOTE | 2020-11-22 17:09 | NUR ---
SHIFT SUMMARY PATIENT ALERT TO SELF, LOCATION, AND SITUATION THIS SHIFT. PATIENT FREQUENTLY FORGETS TO USE CALL LIGHT AND CALLS OUT. PATIENT 1 ASSIST TO THE BATHROOM. PATIENT IS MORE ACTIVE THIS AFTERNOON AND STATES THAT SHE IS "READY TO GO HOME." PATIENT FREQUENTLY REMINDED THAT WE ARE ATTEMPTING TO FIND A PLACE FOR HER TO GO. PATIENT ACKNOWLEDGES THIS THEN REPEATS DESIRE TO LEAVE SHORTLY AFTER. PATIENT DENIES PAIN THIS SHIFT. PATIENT CURRENTLY SITTING UP IN BED LOOKING OUT THE WINDOW.
--- NOTE | 2020-11-22 18:10 | NUR ---
SHIFT SUMMARY PATIENT ARRIVED TO THE FLOOR VIA GURNEY LATE THIS AFTERNOON. PATIENT TRANSFERED TO THE BED WITH VERBAL DIRECTION. PATIENT LAYED DOWN AND STATED SHE DIDN'T FEEL WELL AT THIS TIME. END MATCHER TECH CALLED AT THIS TIME REPORTING PATIENT CONVERTED TO AFIB. PATIENT REMAINED LAYING IN BED UNTIL DINNER ARRIVED. PATIENT SITTING UPRIGHT IN BED EATING DINNER INDEPENDENTLY AT THIS TIME.
--- NOTE | 2020-11-23 06:02 | NUR ---
SHIFT SUMMARY NO ACUTE CHANGES THIS SHIFT. AOX3-UNAWARE DATE, FOLLOWS DIRECTIONS. HX DEMENTIA. PLEASENT & COOPERATIVE c CARE. VSS. REPORTED 810 PAIN IN R HIP MEDICATED 1X c NORCO. UP 1 ASSIST c FWW TO RESTROOM. AWAITING PLACEMENT. CALL LIGHT & BED ALARM IN PLACE. WILL MONITOR.
--- NOTE | 2020-11-23 17:23 | NUR ---
SHIFT SUMMARY PATIENT ALERT, ORIENTED X3 THIS SHIFT. PATIENT AWAKE THROUGH MOST OF THIS SHIFT. PATIENT HAS ALTERNATED SITTING UP IN THE CHAIR AND LAYING IN BED. PATIENT MEDICATED 1X FOR PAIN THIS SHIFT. PATIENT CALM AND COOPERATIVE WITH CARE THIS SHIFT. PATIENT CURRENTLY LAYING IN BED AWAITING DINNER.
--- NOTE | 2020-11-24 04:25 | NUR ---
SHIFT SUMMARY ASSUMED CARE OF PT AT 1900. PT IS A/O TO SELF AND SURROUNDINGS. PT CALLS OUT WHEN SHE NEEDS HELP TO BATHROOM. PT C/O PAIN IN R HIP, MEDICATED ONCE FOR PAIN. HEART SOUNDS REGULAR, LUNG SOUNDS CLEAR. PT WAS 1P SBA TO BATHROOM. NO ACUTE EVENTS. PT SLEPT T/O THE NIGHT. CALL LIGHT IN REACH, BED IN LOWEST POSITON.
--- NOTE | 2020-11-24 16:00 | NUR ---
PT HAS BEEN RESTLESS AND GETTING OUT OF BED. TRIED POTTYING BUT SHE STATES IS NOT HER ISSUE. ASKED ABOUT PAIN. SHE ADMITS TO PAIN IN RT HIP. STATES IS HIGH, BUT UNAGLE TO TELL ME #. ADMIN PAIN MED. WILLFOLLOW TO SEE IF THIS HELLPS. PT DOING PRETTY WELL WITH AMBULATION. JUST NEEDS REDIRECTION TO KEEP SAFE. BED IN LOW POSITIOIN, CALL LITE IN REACH, BED ALARM ON [facility]
--- NOTE | 2020-11-25 03:39 | NUR ---
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 HAD MULTIPLE ATTEMPTS OF BED EXITING EARLY IN THE SHIFT, PT SAFELY REDIRECTED TO BED. PT MEDICATED FOR R HIP PAIN PER EMAR. NO C/O CP, SOB, OR N&V. PT CALM AND RESTED IN BED MOST OF SHIFT. PT 1P SBA W/ FWW WHEN AMBULATING TO BATHROOM. BED AT LOWEST POSITION W/ ALARM ON. CALL LIGHT WITHIN REACH.
--- NOTE | 2020-11-25 18:34 | NUR ---
PT REMAINS ALERT/ORIENTED X2, STEADY ON HER FEET, HAS BEEN AMBULATING IN [place] W/O DIFFICULTY. NO ACUTE CHANGES NOTED THIS SHIFT, WILL CONTINUE TO MONITOR AND REPORT TO ONCOMING RN.
--- NOTE | 2020-11-26 03:27 | NUR ---
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 PT PLEASANT AND COOPERATIVE TO CARE T/O SHIFT. PT MEDICATED FOR R HIP PAIN X1 PER EMAR. NO C/O CP, SOB OR N&V. PT AMBULATED TO BSC W/ 1P SBA, NO ISSUES NOTED WHEN AMBULATING. PT CALM AND RESTED IN BED T/O SHIFT. BED AT LOWEST POSITION W/ ALARM ON, CALL LIGHT WITHIN REACH.
--- NOTE | 2020-11-26 17:59 | NUR ---
PT HAS BEEN UP AND AMBULATING IN [place] T/O THIS SHIFT, NO C/O PAIN OR DISCOMFORT. NO ACUTE CHANGES NOTED, WILL CONTINUE TO MONITOR AND REPORT TO ONCOMING RN
--- NOTE | 2020-11-27 04:35 | NUR ---
SUPERVISOR BENZENE REFINING SUMMARY NO ACUTE CHANGES NOTED TO PT THIS SHIFT. A&OX2, PLEASANTLY CONFUSED AND EASILY REDIRECTABLE. COOPERATIVE TO CARE. PT MEDICATED FOR R HIP PAIN PER EMAR. NO C/O CP, SOB, OR N&V. PT AMBULATED TO THE BATHROOM W/ 1P SBA W/O ISSUES THIS SHIFT. NO C/O DYSURIA. PT CALM AND RESTED IN BED T/O SHIFT. BED AT LOWEST POSITION W/ ALARM ON. CALL LIGHT WITHIN REACH.
[2020-11-27 11:06] LABS: Influenza A, PCR Negative (NEGATIVE); Influenza B, PCR Negative (NEGATIVE); Resp Syncytial Virus, PCR Negative (NEGATIVE); SARS-Cov-2 (COVID-19) PCR, MMC Negative (NEGATIVE)
--- NOTE | 2020-11-27 17:27 | NUR ---
SHIFT SUMMARY PT AOX2-3. PT GETS UP WITHOUT USING CALL LIGHT. PT CONFUSED AT TIMES. DENIES PAIN DURING THIS SHIFT. PT USES BSC WITH FWW 1P ASSIST. PT HAD SEVERAL LOOSE STOOLS TODAT. NO APPARENT DISTRESS. BED ALARM IS ON AND ENCOURAGE THE USE OF CALL LIGHT.
--- NOTE | 2020-11-28 04:08 | NUR ---
SHIFT SUMMARY: AFEB. AAOX2. IRRITABLE MOOD TONIGHT. REDIRECTS FAIRLY WELL. INCONTINENT BUT WILL AMBULATE TO THE BATHROOM EACH TIME SHE IS INCONTINENT. GAIT IS SLOW, WEAK, WELL PACED. MED X 1 FOR R HIP PAIN EFFECTIVELY. PT SLEPT MOST OF THE NIGHT. NO ACUTE CHANGES. WCTM.
--- NOTE | 2020-11-28 16:04 | NUR ---
SHIFT SUMMARY PT AOX3. CONFUSED AT TIMES AND REDIRECT NEEDED. PT IS CALM AND COOPERATIVE TO HER CARE. PLAN OF DC IS TOMORROW AND PT AWARE. DENIES PAIN DURING THIS SHIFT. PT BED IS IN THE LOWEST POSITION AND CALL LIGHT WITHIN REACH
--- NOTE | 2020-11-29 04:28 | NUR ---
SHIFT SUMMARY: VSS. AFEB. AA0X2. POOR SAFETY AWARENESS. BED LOW, BED ALARM ON, CALL BUTTON IN REACH. REPORTS OF ONGOING R HIP PAIN, MED X 1 W/PRN ANALGESIC EFFECTIVELY- PT APPEARS TO HAVE SLEPT MOST OF THE NIGHT. AMB TO BATHROOM W/ 1 ASSIST. NO ACUTE CHANGES OVERNIGHT. WCTM.
[2020-11-29] MEDS ORDERED: FAMO20 PO (12:35)
[2020-11-29] MEDS ORDERED: SENN187 PO (12:35)
[2020-11-29] MEDS ORDERED: LIDO700A20 TOP (12:35)
[2020-11-29] MEDS ORDERED: MELA3 PO (12:35)
--- NOTE | 2020-11-29 14:05 | NUR ---
REPORT TO [facility]. BING [facility] RN TO ORDER HH. B[facility] AWARE HAS TO GET NEW PCP IN [place]. ANSWER ALL QUESTIONS. 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 RIDE TO BE HERE AROUND 1530.
--- NOTE | 2020-11-29 14:54 | NUR ---
AMBULATORY IN [place]WAY STEADY GAIT. UPSET ABOUT GETTING CHANGED OUT OF HOSPITAL GOWN AND INTO REG CLOTHES. WCTM TILL RIDE IS HERE.
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
== END 2020-11-29 16:30 | DRG 853 ==
LOC: ER 09:06 → SURS 13:20 → MEDS 13:20 → SURS 13:21 → MEDS 10-09 17:43
PROVIDERS: Family Medicine; Hospitalist; Internal Medicine; Orthopaedic Surgery; Physician Assistant; Student in an Organized Health Care Education/Training Program; ADMIT Internal Medicine
PROC: 0SRR0JZ Replacement of Right Hip Joint, Femoral Surface with Synthetic Substitute, Open Approach (ICD-10-PCS; principal; 2020-09-20 13:00)
DX: A41.9 Sepsis, unspecified organism (principal); S72.001A Fracture of unspecified part of neck of right femur, initial encounter for closed fracture; G92 Toxic encephalopathy; J96.01 Acute respiratory failure with hypoxia; J18.9 Pneumonia, unspecified organism; J98.11 Atelectasis; D62 Acute posthemorrhagic anemia; Z79.82 Long term (current) use of aspirin; Z66 Do not resuscitate; W06.XXXA Fall from bed, initial encounter; G30.9 Alzheimer's disease, unspecified; Y93.9 Activity, unspecified; Y92.193 Bedroom in other specified residential institution as the place of occurrence of the external cause; I10 Essential (primary) hypertension; E78.5 Hyperlipidemia, unspecified; F25.9 Schizoaffective disorder, unspecified; E87.6 Hypokalemia; G62.9 Polyneuropathy, unspecified; N32.81 Overactive bladder; H61.23 Impacted cerumen, bilateral; F02.80 Dementia in other diseases classified elsewhere, unspecified severity, without behavioral disturbance, psychotic disturbance, mood disturbance, and anxiety
CPT/HCPCS: 0241U; 36415; 36600; 70450; 71045; 72170; 73502; 80048; 80053; 80069; 82803; 84145; 85014; 85018; 85025; 85027; 85610; 87040; 88305; 88311; 94640; 94760; 94762; 96374; 96375; 97110; 97112; 97116; 97162; 97164; 97166; 97530; 97530-CQ; 97535; 99284-25; A9270; A9270-GY; C1776; J0171; J0330; J0456; J0690; J0696; J0735; J1170; J1650; J1885; J1940; J2405; J2704; J2795; J3010; J7050; J7120